=== PATIENT | male | born 1960 | race Two or more races ===

== ENCOUNTER 2019-07-18 00:26 | Inpatient (IN) | payer MEDICAID ==
[~2019-07-18] VITALS: Ht 170.2 cm; Wt 80.1 kg
[2019-07-18] VITALS (22 sets, daily range): BP systolic 135–159; BP diastolic 58–84
--- NOTE | 2019-07-18 01:09 | Emergency Room Report ---
History of Present Illness General Chief Complaint: Fever Source: Patient Present Illness HPI This is a 59-year-old male with no past medical history. He presents with chief complaint of fever and coughing. Onset for the last 2 to 3 days but worse today. Fever is subjective. Said warm to the touch. Also with chills. He said he is more short of breath today. Coughing is nonproductive nature. Also has sore throat. Nothing made it better. Inspiration made it worse. Denies any nausea or vomiting. Denies any diarrhea. No known sick contact but patient just started a new job. Allergies: Coded Allergies: No Known Allergies (Unverified , 07/18/19) COVID-19 Screening Contact w/high risk pt: Yes Recent Travel to affected area: No Experienced COVID-19 symptoms?: Yes COVID-19 symptoms experienced: Fever (T>100.4F or >38C), Shortness of Breath, Cough COVID-19 Testing performed LAW LIBRARIAN: No Patient History Past Medical History: see triage record, old chart reviewed Past Surgical History: none Pertinent Family History: none Social History: Denies: smoking Immunizations: other Reviewed Nursing Documentation: PMH: Agreed; PSxH: Agreed Review of Systems Constitutional: Reports: chills, fever Eye: Denies: eye pain, blurred vision ENT: Denies: ear pain, nose congestion, throat swelling Respiratory: Reports: cough, shortness of breath Cardiovascular: Denies: chest pain, palpitations Gastrointestinal: Denies: abdominal pain, diarrhea, nausea, vomiting Musculoskeletal: Denies: back pain, joint pain Skin: Denies: rash Neurological: Denies: headache, numbness Endocrine: Denies: increased thirst, increased urine Hematologic/Lymphatic: Denies: easy bruising All Other Systems: negative except mentioned in HPI Physical Exam Vital Signs Date Time Temp Pulse Resp B/P (MAP) Pulse Ox O2 Delivery O2 Flow Rate FiO2 07/18/19 00:34 98.4 93 16 149/81 (103) 93 Room Air Vitals unremarkable Sp02 EP Interpretation: reviewed, abnormal General Appearance: well appearing, no apparent distress, alert Head: normocephalic, atraumatic Eyes: bilateral eye PERRL, bilateral eye EOMI ENT: hearing grossly normal, normal pharynx Neck: full range of motion, supple, no meningismus Respiratory: chest non-tender, normal breath sounds, decreased breath sounds Cardiovascular #1: regular rate, rhythm, no murmur Gastrointestinal: normal bowel sounds, non tender, no mass, no organomegaly, no bruit, non-distended Musculoskeletal: back normal, normal range of motion, gait/station normal Psychiatric: mood/affect normal Medical Decision Making Diagnostic Impression: Primary Impression: Pneumonia Qualified Codes: J18.9 - Pneumonia, unspecified organism Additional Impressions: Suspected COVID-19 virus infection Obesity (BMI 30.0-34.9) ER Course Patient presents with dyspnea and fever. Based on the laboratory data and current pandemic, suspect that he has COVID pneumonia. His ferritin level, d- dimer, sed rate, C-reactive proteins are elevated. He has a lymphocytopenia. This points toward COVID infection. He received antibiotics, hydroxy chloroquine and Lovenox here. His oxygenation is around 93% on room air. Will admit for monitoring and further work-up. I contacted Dr. Wan for admission. This patient was evaluated in the context of the global COVID-19 pandemic, which necessitated consideration that the patient might be at risk for infection with the [id number] virus that causes COVID-19. Institutional protocols and algorithms that pertain to the evaluation of patients at risk for COVID-19 and the state of rapid change based on information released by multiple regulatory bodies including the CDC and federal and state organizations. These policies and algorithms were followed during the patient' s care in the ED. EKG Diagnostic Results Rate: normal Rhythm: NSR ST Segments: no acute changes Rhythm Strip Diag. Results EP Interpretation: yes Rate: 83 Rhythm: NSR, no PVC's, no ectopy Chest X-Ray Diagnostic Results Chest X-Ray Diagnostic Results : Chest X-Ray Ordered: Yes # of Views/Limited/Complete: 1 View Indication: Shortness of Breath EP Interpretation: Yes Interpretation: no effusion, no pneumothorax, other - b/l interstitial infiltrate Impression: Other - b/l interstitial infiltrates Electronically Signed by: Evert Degroot MD Last Vital Signs Date Time Temp Pulse Resp B/P (MAP) Pulse Ox O2 Delivery O2 Flow Rate FiO2 07/18/19 00:34 98.4 93 16 149/81 (103) 93 Room Air Status: improved Disposition: ADMITTED INPATIENT Condition: Serious Referrals: NOT CHOSEN IPA/,REFERRING (PCP) Evert Degroot MD July 18, 2019 01:09
[2019-07-18 01:31] LABS: BASOPHILS % (AUTO) 0.6 % (0.0-2.0); EOSINOPHILS % (AUTO) 0.8 % (0.0-3.0); HEMATOCRIT 42.7 % (42.0-52.0); HEMOGLOBIN 14.6 G/DL (14.2-18.0); LYMPHOCYTES % (AUTO) 14.8 % (20.0-45.0); MEAN CORPUSCULAR VOLUME 83 FL (80-99); MONOCYTES % (AUTO) 11.7 % (1.0-10.0); PLATELET COUNT 251 K/UL (150-450); RED BLOOD COUNT 5.12 M/UL (4.70-6.10); RED CELL DISTRIBUTION WIDTH 11.3 % (11.6-14.8); WHITE BLOOD COUNT 6.3 K/UL (4.8-10.8)
[2019-07-18 01:43] LABS: ANION GAP 8 mmol/L (5-15); BLOOD UREA NITROGEN 11 mg/dL (7-18); CALCIUM 8.8 MG/DL (8.5-10.1); CARBON DIOXIDE 29 MMOL/L (21-32); CHLORIDE 102 MMOL/L (98-107); CREATININE 1.1 MG/DL (0.55-1.30); POTASSIUM 3.9 MMOL/L (3.5-5.1); SODIUM 139 MMOL/L (136-145)
[2019-07-18] MEDS ORDERED: cefTRIAXone 1 GM in NS 55 ML IVPB ONE (01:45)
[2019-07-18] MEDS ORDERED: Azithromycin 500 MG in NS 275 ML IV ONE (01:45)
[2019-07-18] MEDS ORDERED: Hydroxychloroquine Fact Sheet MISC ONE ×2 (01:45→07:45)
[2019-07-18 02:00] LABS: ALANINE AMINOTRANSFERASE 56 U/L (12-78); ALBUMIN 2.8 G/DL (3.4-5.0); ALBUMIN/GLOBULIN RATIO 0.5 (1.0-2.7); ALKALINE PHOSPHATASE 65 U/L (46-116); ASPARTATE AMINO TRANSFERASE 69 U/L (15-37); BILIRUBIN,TOTAL 0.7 MG/DL (0.2-1.0); FERRITIN 1153 NG/ML (8-388)
--- NOTE | 2019-07-18 02:01 | Diagnostic Imaging Report ---
EXAM: XR Chest, 1 View CLINICAL HISTORY: SOB TECHNIQUE: Frontal view of the chest. COMPARISON: No relevant prior studies available. IMPRESSION: Cardiomegaly. Moderate left and mild right pleural effusions. Increased bilateral patchy airspace opacities, correlate with edema or infectious process.
[2019-07-18] MEDS ORDERED: Enoxaparin 100mg Inj SUBQ ONE (02:15)
[2019-07-18] MEDS: Enoxaparin 40mg Inj SUBQ SCH (08:10)
--- NOTE | 2019-07-18 11:15 | History and Physical Report ---
DATE OF ADMISSION: 07/18/2019 CHIEF COMPLAINT: Respiratory failure and pneumonia, likely COVID pneumonia. HISTORY OF PRESENT ILLNESS: The patient is a 59-year-old male with no past medical history presented with complaints of two to three days of progressive shortness of breath, fevers, and cough. On evaluation in the emergency room, the patient was markedly hypoxic and required placement on a non-rebreather. X-ray showed bilateral infiltrates. The patient was swab for COVID and is now admitted to intensive care unit for further evaluation and care. PAST MEDICAL HISTORY: None. PAST SURGICAL HISTORY: None. CURRENT MEDICATIONS: None. FAMILY HISTORY: None. SOCIAL HISTORY: The patient denies any history of tobacco or drugs. REVIEW OF SYSTEMS: Negative except for fevers, cough, and shortness of breath. PHYSICAL EXAMINATION: VITAL SIGNS: Temperature was 98 degrees, blood pressure 110/76, pulse of 88, respirations 20. GENERAL: The patient is a well-developed male, in no apparent distress. He is able to speak in full sentences. NECK: Supple. There is no adenopathy. HEART: Regular rate and rhythm. LUNGS: Clear. ABDOMEN: Soft, nontender, nondistended. EXTREMITIES: Without clubbing or cyanosis. LABORATORY DATA: Labs were reviewed. Chest x-ray showed bilateral infiltrates. ASSESSMENT: This is a 59-year-old male, admitted with complaints of shortness of breath, cough, and fevers, and significant hypoxemia, likely secondary to COVID pneumonia. PLAN: We will continue hydroxychloroquine that has already been started in the ER. The risks and benefits were discussed with the patient as well as the family and they are in agreement with trying treatment. They are aware that his current status is tenuous and guarded and that if his pneumonia worsens he can likely be on a ventilator, on life support. The patient will be gently hydrated. He will be started on DVT prophylaxis. The patient's status is currently serious and guarded. Clark Wan M.D. DR: TERA JOB#: [id number] CC:
--- NOTE | 2019-07-18 19:45 | Consultation ---
DATE OF CONSULTATION: 07/18/2019 This consult is for coverage of Dr. Kilgore. PRIMARY ATTENDING: Clark Wan MD REASON FOR CONSULT: Pneumonia, suspected COVID-19. HISTORY OF PRESENT ILLNESS: A 59-year-old male admitted today because of fever, coughing, shortness of breath. Fever was subjective. Cough was nonproductive. Shortness of breath for one day. PAST MEDICAL HISTORY: Insignificant. ALLERGIES: No known drug allergies. MEDICATIONS: Getting hydroxychloroquine, ceftriaxone, Lovenox, Tylenol, Zofran. SOCIAL HISTORY: . 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 Never a smoker. REVIEW OF SYSTEMS: Subjective fever, dry cough. No nausea. No vomiting. No diarrhea. No dysuria. PHYSICAL EXAMINATION: VITAL SIGNS: Temperature 99.7, pulse 79, blood pressure 144/69. The patient is in ICU because of hypoxemia. HEAD AND NECK: [place] conjunctivae. HEART: Normal rate. LUNGS: The patient is on oxygen by rebreathing mask, breathing fast. ABDOMEN: Soft. EXTREMITIES: No edema. NEUROLOGIC: Awake, alert, oriented x3. LABORATORY AND DIAGNOSTIC DATA: Sodium 139, potassium 3.9, chloride 102, bicarbonate 27, BUN 11, creatinine 1.1, glucose 117. Ferritin is high 1153. AST is elevated at 69. Albumin is 2.8. WBC 6.3, hemoglobin 14.6, hematocrit 42.7, and platelets 251, lymphocyte is 14.8, monocytes 11.7. Chest x-ray showed bilateral effusion that is moderate on the left side, mild on the right side, bilateral patchy airway opacity. IMPRESSION: Atypical pneumonia, likely COVID-19, has hypoxemia, pleural effusion, obesity. RECOMMENDATIONS: We will continue with ceftriaxone and chloroquine. We will follow up the cultures and COVID-19 test. At the end of my exam, I thank Dr. Wan for involving me in the care of this patient. Ricci Greco M.D. DR: MONI JOB#: [id number] CC: SURENDRA
[2019-07-19] VITALS (23 sets, daily range): BP systolic 136–158; BP diastolic 71–86
[2019-07-19] MEDS: cefTRIAXone 1 GM in D5W 55 ML IVPB SCH (01:37)
[2019-07-19 06:24] LABS: ALANINE AMINOTRANSFERASE 60 U/L (12-78); ALBUMIN 2.5 G/DL (3.4-5.0); ALBUMIN/GLOBULIN RATIO 0.5 (1.0-2.7); ALKALINE PHOSPHATASE 61 U/L (46-116); ANION GAP 9 mmol/L (5-15); ASPARTATE AMINO TRANSFERASE 79 U/L (15-37); BILIRUBIN,TOTAL 0.5 MG/DL (0.2-1.0); BLOOD UREA NITROGEN 7 mg/dL (7-18); CALCIUM 8.5 MG/DL (8.5-10.1); CARBON DIOXIDE 27 MMOL/L (21-32); CHLORIDE 104 MMOL/L (98-107); CREATININE 0.8 MG/DL (0.55-1.30); POTASSIUM 4.2 MMOL/L (3.5-5.1); SODIUM 140 MMOL/L (136-145)
[2019-07-19 07:34] LABS: BASOPHILS % (AUTO) 0.4 % (0.0-2.0); EOSINOPHILS % (AUTO) 1.3 % (0.0-3.0); HEMATOCRIT 39.6 % (42.0-52.0); HEMOGLOBIN 13.6 G/DL (14.2-18.0); MEAN CORPUSCULAR VOLUME 83 FL (80-99); MONOCYTES % (AUTO) 11.7 % (1.0-10.0); NEUTROPHILS % (AUTO) 68.7 % (45.0-75.0); PLATELET COUNT 295 K/UL (150-450); RED BLOOD COUNT 4.75 M/UL (4.70-6.10); RED CELL DISTRIBUTION WIDTH 10.9 % (11.6-14.8)
[2019-07-19] MEDS: Enoxaparin 40mg Inj SUBQ SCH (08:06)
--- NOTE | 2019-07-19 08:17 | General Progress Note ---
Assessment/Plan Problem List: (1) Pneumonia ICD Codes: J18.9 - Pneumonia, unspecified organism SNOMED: 036394718 Qualifiers: Qualified Codes: J18.9 - Pneumonia, unspecified organism (2) Suspected COVID-19 virus infection ICD Codes: Z20.828 - Contact with and (suspected) exposure to other viral communicable diseases SNOMED: 745111066 Status: stable Assessment/Plan: abx plaquenil o2 await covid 19 pcr Subjective ROS Limited/Unobtainable: No Constitutional: Reports: no symptoms HEENT: Reports: no symptoms Cardiovascular: Reports: no symptoms Respiratory: Reports: shortness of breath Gastrointestinal/Abdominal: Reports: no symptoms Genitourinary: Reports: no symptoms Neurologic/Psychiatric: Reports: no symptoms Endocrine: Reports: no symptoms Hematologic/Lymphatic: Reports: no symptoms Allergies: Coded Allergies: No Known Allergies (Unverified , 07/18/19) All Systems: reviewed and negative except above Subjective no change. on nrb. covid pending. on abx Objective Last 24 Hour Vital Signs Date Time Temp Pulse Resp B/P (MAP) Pulse Ox O2 Delivery O2 Flow Rate FiO2 07/19/19 08:05 82 150/74 07/19/19 07:00 81 33 151/81 (104) 98 81 07/19/19 06:00 82 25 146/75 (98) 91 82 07/19/19 05:00 70 18 155/79 (104) 96 70 07/19/19 04:00 97.9 69 25 136/72 (93) 94 69 07/19/19 04:00 86 07/19/19 04:00 Non-Rebreather 15.0 07/19/19 03:00 64 25 139/74 (95) 97 64 07/19/19 02:00 85 23 153/71 (98) 91 85 07/19/19 01:00 80 31 150/74 (99) 94 80 07/19/19 00:00 Non-Rebreather 15.0 07/19/19 00:00 98.6 65 20 153/78 (103) 98 65 07/19/19 00:00 85 07/18/19 23:00 83 25 154/76 (102) 92 83 07/18/19 22:00 85 30 144/74 (97) 94 5/24/20 21:00 70 30 154/74 (100) 94 07/18/19 20:58 88 160/83 07/18/19 20:00 84 07/18/19 20:00 98.5 84 30 152/78 (102) 91 07/18/19 20:00 Non-Rebreather 15.0 07/18/19 19:00 83 34 149/76 (100) 91 07/18/19 18:00 83 34 154/78 (103) 87 07/18/19 17:00 71 28 145/69 (94) 96 07/18/19 16:00 Non-Rebreather 07/18/19 16:00 98.2 79 35 159/84 (109) 88 07/18/19 15:26 80 07/18/19 15:00 72 26 149/78 (101) 95 07/18/19 14:00 80 29 148/76 (100) 91 07/18/19 13:00 75 27 139/72 (94) 98 07/18/19 12:00 98.5 90 23 148/59 (88) 84 07/18/19 12:00 Non-Rebreather 07/18/19 11:28 77 07/18/19 11:00 83 26 143/72 (95) 98 07/18/19 10:00 78 29 138/74 (95) 96 07/18/19 09:00 79 27 144/69 (94) 96 Intake and Output 07/18/19 07/19/19 19:00 07:00 Intake Total 1075 ml 1015 ml Output Total 700 ml 1150 ml Balance 375 ml -135 ml Intake Oral 1075 ml 960 ml IV Total 55 ml Output Urine Total 700 ml 1150 ml Laboratory Tests 07/19/19 03:30: Sodium Level [Pending], Potassium Level [Pending], Chloride Level [Pending], Carbon Dioxide Level [Pending], Anion Gap 9, Blood Urea Nitrogen [Pending], Creatinine [Pending], Estimat Glomerular Filtration Rate [Pending], Glucose Level [Pending], Calcium Level [Pending], Total Bilirubin 0.5, Aspartate Amino Transf (AST/SGOT) 79H, Alanine Aminotransferase (ALT/SGPT) 60, Alkaline Phosphatase 61, C-Reactive Protein, Quantitative 17.3H, Total Protein 7.5, Albumin 2.5L, Globulin 5.0, Albumin/Globulin Ratio 0.5L 07/19/19 05:30: White Blood Count 7.0, Red Blood Count 4.75, Hemoglobin 13.6L, Hematocrit 39.6L , Mean Corpuscular Volume 83, Mean Corpuscular Hemoglobin 28.7, Mean Corpuscular Hemoglobin Concent 34.4, Red Cell Distribution Width 10.9L, Platelet Count 295, Mean Platelet Volume 6.6, Neutrophils (%) (Auto) 68.7, Lymphocytes (%) (Auto) 18.0L, Monocytes (%) (Auto) 11.7H, Eosinophils (%) (Auto ) 1.3, Basophils (%) (Auto) 0.4 Height (Feet): 5 Height (Inches): 7.00 Weight (Pounds): 208 General Appearance: WD/WN Cardiovascular: normal rate Respiratory/Chest: lungs clear Abdomen: normal bowel sounds, non tender, soft, no organomegaly Edema: no edema noted Arm (L), no edema noted Arm (R), no edema noted Leg (L), no edema noted Leg (R), no edema noted Pedal (L), no edema noted Pedal (R), no edema noted Generalized Clark Wan MD July 19, 2019 08:17
--- NOTE | 2019-07-19 10:04 | Infectious Diseases Prog Note ---
Assessment/Plan Assessment/Plan antibiotics : ceftriaxone, hydroxychloroquine A 1. pneumonia r/o COVID 19 pneumonia on face mask 100 percent, saturation 96 percent 2. pleural effusion 3. respiratory failure P 1. continue ceftriaxone 2. continue hydroxychloroquine 3. will follow up cultures Subjective ROS Limited/Unobtainable: Yes Allergies: Coded Allergies: No Known Allergies (Unverified , 07/18/19) Objective Vital Signs Last 24 Hour Vital Signs Date Time Temp Pulse Resp B/P (MAP) Pulse Ox O2 Delivery O2 Flow Rate FiO2 07/19/19 09:00 68 26 146/79 (101) 98 68 07/19/19 08:05 82 150/74 07/19/19 08:00 98.2 82 32 150/74 (99) 91 82 07/19/19 08:00 Non-Rebreather 15.0 07/19/19 07:26 87 07/19/19 07:00 81 33 151/81 (104) 98 81 07/19/19 06:00 82 25 146/75 (98) 91 82 07/19/19 05:00 70 18 155/79 (104) 96 70 07/19/19 04:00 97.9 69 25 136/72 (93) 94 69 07/19/19 04:00 86 07/19/19 04:00 Non-Rebreather 15.0 07/19/19 03:00 64 25 139/74 (95) 97 64 07/19/19 02:00 85 23 153/71 (98) 91 85 07/19/19 01:00 80 31 150/74 (99) 94 80 07/19/19 00:00 Non-Rebreather 15.0 07/19/19 00:00 98.6 65 20 153/78 (103) 98 65 07/19/19 00:00 85 07/18/19 23:00 83 25 154/76 (102) 92 83 07/18/19 22:00 85 30 144/74 (97) 94 07/18/19 21:00 70 30 154/74 (100) 94 07/18/19 20:58 88 160/83 07/18/19 20:00 84 07/18/19 20:00 98.5 84 30 152/78 (102) 91 07/18/19 20:00 Non-Rebreather 15.0 07/18/19 19:00 83 34 149/76 (100) 91 07/18/19 18:00 83 34 154/78 (103) 87 07/18/19 17:00 71 28 145/69 (94) 96 07/18/19 16:00 Non-Rebreather 07/18/19 16:00 98.2 79 35 159/84 (109) 88 07/18/19 15:26 80 07/18/19 15:00 72 26 149/78 (101) 95 07/18/19 14:00 80 29 148/76 (100) 91 07/18/19 13:00 75 27 139/72 (94) 98 07/18/19 12:00 98.5 90 23 148/59 (88) 84 07/18/19 12:00 Non-Rebreather 07/18/19 11:28 77 07/18/19 11:00 83 26 143/72 (95) 98 07/18/19 10:00 78 29 138/74 (95) 96 Height (Feet): 5 Height (Inches): 7.00 Weight (Pounds): 208 Laboratory Tests Test 07/19/19 03:30 07/19/19 05:30 Sodium Level Pending Potassium Level Pending Chloride Level Pending Carbon Dioxide Level Pending Anion Gap 9 mmol/L (5-15) Blood Urea Nitrogen Pending Creatinine Pending Estimat Glomerular Filtration Rate Pending Glucose Level Pending Calcium Level Pending Total Bilirubin 0.5 MG/DL (0.2-1.0) Aspartate Amino Transf (AST/SGOT) 79 U/L (15-37) H Alanine Aminotransferase (ALT/SGPT) 60 U/L (12-78) Alkaline Phosphatase 61 U/L (46-116) C-Reactive Protein, Quantitative 17.3 mg/dL (0.00-0.90) H Total Protein 7.5 G/DL (6.4-8.2) Albumin 2.5 G/DL (3.4-5.0) L Globulin 5.0 g/dL Albumin/Globulin Ratio 0.5 (1.0-2.7) L White Blood Count 7.0 K/UL (4.8-10.8) Red Blood Count 4.75 M/UL (4.70-6.10) Hemoglobin 13.6 G/DL (14.2-18.0) L Hematocrit 39.6 % (42.0-52.0) L Mean Corpuscular Volume 83 FL (80-99) Mean Corpuscular Hemoglobin 28.7 PG (27.0-31.0) Mean Corpuscular Hemoglobin Concent 34.4 G/DL (32.0-36.0) Red Cell Distribution Width 10.9 % (11.6-14.8) L Platelet Count 295 K/UL (150-450) Mean Platelet Volume 6.6 FL (6.5-10.1) Neutrophils (%) (Auto) 68.7 % (45.0-75.0) Lymphocytes (%) (Auto) 18.0 % (20.0-45.0) L Monocytes (%) (Auto) 11.7 % (1.0-10.0) H Eosinophils (%) (Auto) 1.3 % (0.0-3.0) Basophils (%) (Auto) 0.4 % (0.0-2.0) Current Medications Medications (Trade) Dose Ordered Sig/Devan Route PRN Reason Start Time Stop Time Status Last Admin Dose Admin Acetaminophen (Tylenol) 500 mg Q4H PRN ORAL Mild Pain (Pain Scale 1-3) 07/18/19 07:45 08/17/19 07:44 Ceftriaxone Sodium 1 gm/ Dextrose 55 ml @ 110 mls/hr Q24H IVPB 07/19/19 02:00 07/26/19 01:59 07/19/19 01:37 Enoxaparin Sodium (Lovenox) 40 mg DAILY SUBQ 07/18/19 09:00 10/16/19 08:59 07/19/19 08:06 Hydroxychloroquine Sulfate (Plaquenil) 200 mg Q12HR ORAL 07/19/19 09:00 07/22/19 21:01 07/19/19 08:06 Metoprolol Tartrate (Lopressor) 25 mg Q12HR ORAL 07/18/19 21:00 10/16/19 20:59 07/19/19 08:05 Ondansetron HCl (Zofran) 4 mg Q6H PRN IVP Nausea & Vomiting 07/18/19 07:45 08/17/19 07:44 Cristine Kilgore MD July 19, 2019 10:04
[2019-07-19] MEDS ORDERED: NS 275ml ONE (16:23)
[2019-07-19] MEDS ORDERED: Tubing IV Secondary IV ONE (16:23)
[2019-07-19] MEDS: Acetaminophen 500mg (ES) tab ORAL PRN (22:09)
[2019-07-20] VITALS (14 sets, daily range): BP systolic 140–156; BP diastolic 69–88
[2019-07-20] MEDS: cefTRIAXone 1 GM in D5W 55 ML IVPB SCH (02:45)
[2019-07-20] MEDS: Acetaminophen 500mg (ES) tab ORAL PRN (06:18)
[2019-07-20] MEDS: Enoxaparin 40mg Inj SUBQ SCH (08:37)
--- NOTE | 2019-07-20 08:50 | General Progress Note ---
Assessment/Plan Problem List: (1) Pneumonia ICD Codes: J18.9 - Pneumonia, unspecified organism SNOMED: [id number] Qualifiers: Qualified Codes: J18.9 - Pneumonia, unspecified organism (2) Suspected COVID-19 virus infection ICD Codes: Z20.828 - Contact with and (suspected) exposure to other viral communicable diseases SNOMED: [id number] Status: stable Assessment/Plan: abx plaquenil o2- wean as able await covid 19 pcr Subjective ROS Limited/Unobtainable: No Constitutional: Reports: malaise, weakness HEENT: Reports: no symptoms Cardiovascular: Reports: no symptoms Respiratory: Reports: cough, shortness of breath Gastrointestinal/Abdominal: Reports: no symptoms Genitourinary: Reports: no symptoms Neurologic/Psychiatric: Reports: no symptoms Endocrine: Reports: no symptoms Hematologic/Lymphatic: Reports: no symptoms Allergies: Coded Allergies: No Known Allergies (Unverified , 07/18/19) All Systems: reviewed and negative except above Subjective no change. on nrb. covid pending. on abx. remains on nrb Objective Last 24 Hour Vital Signs Date Time Temp Pulse Resp B/P (MAP) Pulse Ox O2 Delivery O2 Flow Rate FiO2 07/20/19 08:35 79 156/80 07/20/19 07:00 79 27 151/75 (100) 97 07/20/19 06:00 84 31 156/78 (104) 94 07/20/19 05:00 82 30 153/77 (102) 92 07/20/19 04:00 Non-Rebreather 15.0 07/20/19 04:00 78 07/20/19 04:00 74 28 146/74 (98) 95 07/20/19 03:00 99.0 68 25 143/74 (97) 93 07/20/19 02:00 65 21 140/75 (96) 98 07/20/19 01:00 73 28 151/74 (99) 96 07/20/19 00:00 Non-Rebreather 15.0 07/20/19 00:00 69 07/20/19 00:00 99.7 71 28 140/76 (97) 96 07/19/19 23:00 70 29 141/79 (99) 85 07/19/19 22:00 76 29 95 07/19/19 21:33 97 Non-Rebreather 15.0 100 07/19/19 21:12 85 155/82 07/19/19 21:00 90 26 155/82 (106) 95 07/19/19 20:00 81 07/19/19 20:00 Non-Rebreather 15.0 07/19/19 20:00 99.2 84 35 158/76 (103) 94 07/19/19 19:00 81 32 148/86 (106) 97 07/19/19 18:00 83 21 145/75 (98) 96 07/19/19 17:00 81 31 156/75 (102) 92 07/19/19 16:00 Non-Rebreather 15.0 07/19/19 16:00 98.6 74 30 147/78 (101) 94 07/19/19 15:19 82 07/19/19 15:00 83 34 148/80 (102) 89 07/19/19 14:00 67 10 148/72 (97) 97 07/19/19 13:00 86 29 145/72 (96) 92 07/19/19 12:00 97.8 80 34 147/74 (98) 81 07/19/19 12:00 Non-Rebreather 15.0 07/19/19 11:18 74 07/19/19 11:00 63 24 140/71 (94) 97 07/19/19 10:00 71 28 144/78 (100) 97 07/19/19 09:00 68 26 146/79 (101) 98 68 Intake and Output 07/19/19 07/20/19 18:59 06:59 Intake Total 1650 ml 1055 ml Output Total 950 ml 1200 ml Balance 700 ml -145 ml Intake Oral 1650 ml 1000 ml IV Total 55 ml Output Urine Total 950 ml 1200 ml # Bowel Movements 1 Height (Feet): 5 Height (Inches): 7.00 Weight (Pounds): 208 General Appearance: WD/WN Neck: supple Cardiovascular: regular rhythm Respiratory/Chest: lungs clear Abdomen: soft Edema: no edema noted Arm (L), no edema noted Arm (R), no edema noted Leg (L), no edema noted Leg (R), no edema noted Pedal (L), no edema noted Pedal (R), no edema noted Generalized Clark Wan MD July 20, 2019 08:49
[2019-07-20] MEDS ORDERED: Acetaminophen 500mg (ES) tab ORAL PRN (10:45)
--- NOTE | 2019-07-20 10:56 | Infectious Diseases Prog Note ---
Assessment/Plan Assessment/Plan antibiotics : ceftriaxone, hydroxychloroquine A 1. pneumonia r/o COVID 19 pneumonia on face mask 100 percent, 15 liters, O2 saturation 97 percent 2. pleural effusion 3. respiratory failure P 1. continue ceftriaxone 2. continue hydroxychloroquine 3. will follow up cultures Subjective ROS Limited/Unobtainable: Yes Allergies: Coded Allergies: No Known Allergies (Unverified , 07/18/19) Objective Vital Signs Last 24 Hour Vital Signs Date Time Temp Pulse Resp B/P (MAP) Pulse Ox O2 Delivery O2 Flow Rate FiO2 07/20/19 10:00 76 26 144/79 (100) 97 07/20/19 09:00 83 26 144/69 (94) 94 07/20/19 08:35 79 156/80 07/20/19 08:00 83 07/20/19 08:00 98.9 78 25 156/80 (105) 97 07/20/19 08:00 Non-Rebreather 15.0 07/20/19 07:00 79 27 151/75 (100) 97 07/20/19 06:00 84 31 156/78 (104) 94 07/20/19 05:00 82 30 153/77 (102) 92 07/20/19 04:00 Non-Rebreather 15.0 07/20/19 04:00 78 07/20/19 04:00 74 28 146/74 (98) 95 07/20/19 03:00 99.0 68 25 143/74 (97) 93 07/20/19 02:00 65 21 140/75 (96) 98 07/20/19 01:00 73 28 151/74 (99) 96 07/20/19 00:00 Non-Rebreather 15.0 07/20/19 00:00 69 07/20/19 00:00 99.7 71 28 140/76 (97) 96 07/19/19 23:00 70 29 141/79 (99) 85 07/19/19 22:00 76 29 95 07/19/19 21:33 97 Non-Rebreather 15.0 100 07/19/19 21:12 85 155/82 07/19/19 21:00 90 26 155/82 (106) 95 07/19/19 20:00 81 07/19/19 20:00 Non-Rebreather 15.0 07/19/19 20:00 99.2 84 35 158/76 (103) 94 07/19/19 19:00 81 32 148/86 (106) 97 07/19/19 18:00 83 21 145/75 (98) 96 07/19/19 17:00 81 31 156/75 (102) 92 07/19/19 16:00 Non-Rebreather 15.0 07/19/19 16:00 98.6 74 30 147/78 (101) 94 07/19/19 15:19 82 07/19/19 15:00 83 34 148/80 (102) 89 07/19/19 14:00 67 10 148/72 (97) 97 07/19/19 13:00 86 29 145/72 (96) 92 07/19/19 12:00 97.8 80 34 147/74 (98) 81 07/19/19 12:00 Non-Rebreather 15.0 07/19/19 11:18 74 07/19/19 11:00 63 24 140/71 (94) 97 Height (Feet): 5 Height (Inches): 7.00 Weight (Pounds): 208 Microbiology Date/Time Source Procedure Growth Status 07/18/19 12:07 Nasal Nares Left MRSA Culture - Final NO METHICILLIN RESISTANT STAPH AUREUS... Complete Current Medications Medications (Trade) Dose Ordered Sig/Devan Route PRN Reason Start Time Stop Time Status Last Admin Dose Admin Acetaminophen (Tylenol) 500 mg Q4H PRN ORAL Mild Pain (Pain Scale 1-3) 07/20/19 10:45 08/17/19 10:44 Ceftriaxone Sodium 1 gm/ Dextrose 55 ml @ 110 mls/hr Q24H IVPB 07/21/19 02:00 07/26/19 01:59 Enoxaparin Sodium (Lovenox) 40 mg DAILY SUBQ 07/21/19 09:00 10/16/19 08:59 Hydroxychloroquine Sulfate (Plaquenil) 200 mg Q12HR ORAL 07/20/19 21:00 07/22/19 21:01 UNV Metoprolol Tartrate (Lopressor) 25 mg Q12HR ORAL 07/20/19 21:00 10/16/19 20:59 Ondansetron HCl (Zofran) 4 mg Q6H PRN IVP Nausea & Vomiting 07/20/19 10:45 08/17/19 10:44 Cristine Kilgore MD July 20, 2019 10:56
[2019-07-21] VITALS: BP 138/72
[2019-07-21] MEDS: cefTRIAXone 1 GM in D5W 55 ML IVPB SCH (01:05)
[2019-07-21 04:00] VITALS: BP 142/77
[2019-07-21 06:10] LABS: ANION GAP 8 mmol/L (5-15); BLOOD UREA NITROGEN 8 mg/dL (7-18); CALCIUM 8.8 MG/DL (8.5-10.1); CARBON DIOXIDE 28 MMOL/L (21-32); CHLORIDE 101 MMOL/L (98-107); POTASSIUM 3.7 MMOL/L (3.5-5.1); SODIUM 137 MMOL/L (136-145)
[2019-07-21 07:30] VITALS: BP 146/79
[2019-07-21] MEDS: Enoxaparin 40mg Inj SUBQ SCH (08:35)
--- NOTE | 2019-07-21 08:50 | General Progress Note ---
Assessment/Plan Problem List: (1) Pneumonia ICD Codes: J18.9 - Pneumonia, unspecified organism SNOMED: 344586021 Qualifiers: Qualified Codes: J18.9 - Pneumonia, unspecified organism (2) Suspected COVID-19 virus infection ICD Codes: Z20.828 - Contact with and (suspected) exposure to other viral communicable diseases SNOMED: 540172825 Status: stable Assessment/Plan: abx plaquenil o2- wean as able await covid 19 pcr replace k Subjective Allergies: Coded Allergies: No Known Allergies (Unverified , 07/18/19) All Systems: reviewed and negative except above Subjective no change. on nrb. covid pending. on abx. remains on nrb Objective Last 24 Hour Vital Signs Date Time Temp Pulse Resp B/P (MAP) Pulse Ox O2 Delivery O2 Flow Rate FiO2 07/21/19 08:34 69 146/79 07/21/19 07:30 97.7 69 20 146/79 (101) 97 07/21/19 04:00 Non-Rebreather 15.0 07/21/19 04:00 97.9 79 20 142/77 (98) 97 07/21/19 03:27 69 07/21/19 00:00 98.2 86 20 138/72 (94) 97 07/21/19 00:00 74 07/21/19 00:00 Non-Rebreather 15.0 07/20/19 20:11 81 144/75 07/20/19 20:00 Non-Rebreather 15.0 07/20/19 20:00 92 07/20/19 19:51 97.7 81 20 144/75 (98) 94 07/20/19 19:25 92 Non-Rebreather 15.0 100 07/20/19 16:00 Non-Rebreather 15.0 07/20/19 16:00 97.3 76 22 144/77 (99) 96 07/20/19 15:23 72 07/20/19 12:34 66 07/20/19 12:00 Non-Rebreather 15.0 07/20/19 12:00 Non-Rebreather 15.0 07/20/19 12:00 97.9 76 24 145/88 (107) 98 07/20/19 10:00 76 26 144/79 (100) 97 07/20/19 09:00 83 26 144/69 (94) 94 Intake and Output 07/20/19 07/21/19 19:00 07:00 Intake Total 840 ml 110 ml Output Total 1800 ml 1000 ml Balance -960 ml -890 ml Intake Oral 840 ml IV Total 110 ml Output Urine Total 1800 ml 1000 ml # Voids 2 1 # Bowel Movements 2 3 Laboratory Tests 07/21/19 04:35: Sodium Level 137, Potassium Level 3.7, Chloride Level 101, Carbon Dioxide Level 28, Anion Gap 8, Blood Urea Nitrogen 8, Creatinine 1.0, Estimat Glomerular Filtration Rate > 60, Glucose Level 123H, Calcium Level 8.8, Magnesium Level 2.4 Height (Feet): 5 Height (Inches): 7.00 Weight (Pounds): 207 Objective General Appearance: WD/WN Neck: supple Cardiovascular: regular rhythm Respiratory/Chest: lungs clear Abdomen: soft Edema: no edema noted Arm (L), no edema noted Arm (R), no edema noted Leg (L), no edema noted Leg (R), no edema noted Pedal (L), no edema noted Pedal (R), no edema noted Generalized Clark Wan MD July 21, 2019 08:49
[2019-07-21 09:54] LABS: BASOPHILS % (AUTO) 0.6 % (0.0-2.0); EOSINOPHILS % (AUTO) 1.8 % (0.0-3.0); HEMATOCRIT 41.6 % (42.0-52.0); HEMOGLOBIN 13.9 G/DL (14.2-18.0); LYMPHOCYTES % (AUTO) 17.5 % (20.0-45.0); MEAN CORPUSCULAR VOLUME 84 FL (80-99); MONOCYTES % (AUTO) 8.8 % (1.0-10.0); NEUTROPHILS % (AUTO) 71.3 % (45.0-75.0); PLATELET COUNT 355 K/UL (150-450); RED BLOOD COUNT 4.98 M/UL (4.70-6.10); RED CELL DISTRIBUTION WIDTH 11.1 % (11.6-14.8); WHITE BLOOD COUNT 7.2 K/UL (4.8-10.8)
--- NOTE | 2019-07-21 10:40 | Infectious Diseases Prog Note ---
Assessment/Plan Assessment/Plan antibiotics : ceftriaxone, hydroxychloroquine A 1. pneumonia r/o COVID 19 pneumonia on face mask 100 percent, 15 liters, O2 saturation 97 percent 2. pleural effusion 3. respiratory failure P 1. continue ceftriaxone 2. continue hydroxychloroquine 3. will follow up cultures Subjective Constitutional: Denies: fever, chills Respiratory: Reports: shortness of breath; Denies: dry cough Gastrointestinal/Abdominal: Denies: nausea, vomiting, diarrhea Musculoskeletal: Denies: pain Allergies: Coded Allergies: No Known Allergies (Unverified , 07/18/19) Objective Vital Signs Last 24 Hour Vital Signs Date Time Temp Pulse Resp B/P (MAP) Pulse Ox O2 Delivery O2 Flow Rate FiO2 07/21/19 08:34 69 146/79 07/21/19 07:30 97.7 69 20 146/79 (101) 97 07/21/19 04:00 Non-Rebreather 15.0 07/21/19 04:00 97.9 79 20 142/77 (98) 97 07/21/19 03:27 69 07/21/19 00:00 98.2 86 20 138/72 (94) 97 07/21/19 00:00 74 07/21/19 00:00 Non-Rebreather 15.0 07/20/19 20:11 81 144/75 07/20/19 20:00 Non-Rebreather 15.0 07/20/19 20:00 92 07/20/19 19:51 97.7 81 20 144/75 (98) 94 07/20/19 19:25 92 Non-Rebreather 15.0 100 07/20/19 16:00 Non-Rebreather 15.0 07/20/19 16:00 97.3 76 22 144/77 (99) 96 07/20/19 15:23 72 07/20/19 12:34 66 07/20/19 12:00 Non-Rebreather 15.0 07/20/19 12:00 Non-Rebreather 15.0 07/20/19 12:00 97.9 76 24 145/88 (107) 98 Height (Feet): 5 Height (Inches): 7.00 Weight (Pounds): 207 Microbiology Date/Time Source Procedure Growth Status 07/18/19 12:07 Nasal Nares Left MRSA Culture - Final NO METHICILLIN RESISTANT STAPH AUREUS... 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 Complete Laboratory Tests Test 07/21/19 04:35 07/21/19 09:35 Sodium Level 137 MMOL/L (136-145) Potassium Level 3.7 MMOL/L (3.5-5.1) Chloride Level 101 MMOL/L (98-107) Carbon Dioxide Level 28 MMOL/L (21-32) Anion Gap 8 mmol/L (5-15) Blood Urea Nitrogen 8 mg/dL (7-18) Creatinine 1.0 MG/DL (0.55-1.30) Estimat Glomerular Filtration Rate > 60 mL/min (>60) Glucose Level 123 MG/DL (74-106) H Calcium Level 8.8 MG/DL (8.5-10.1) Magnesium Level 2.4 MG/DL (1.8-2.4) White Blood Count 7.2 K/UL (4.8-10.8) Red Blood Count 4.98 M/UL (4.70-6.10) Hemoglobin 13.9 G/DL (14.2-18.0) L Hematocrit 41.6 % (42.0-52.0) L Mean Corpuscular Volume 84 FL (80-99) Mean Corpuscular Hemoglobin 28.0 PG (27.0-31.0) Mean Corpuscular Hemoglobin Concent 33.5 G/DL (32.0-36.0) Red Cell Distribution Width 11.1 % (11.6-14.8) L Platelet Count 355 K/UL (150-450) Mean Platelet Volume 6.2 FL (6.5-10.1) L Neutrophils (%) (Auto) 71.3 % (45.0-75.0) Lymphocytes (%) (Auto) 17.5 % (20.0-45.0) L Monocytes (%) (Auto) 8.8 % (1.0-10.0) Eosinophils (%) (Auto) 1.8 % (0.0-3.0) Basophils (%) (Auto) 0.6 % (0.0-2.0) Current Medications Medications (Trade) Dose Ordered Sig/Devan Route PRN Reason Start Time Stop Time Status Last Admin Dose Admin Acetaminophen (Tylenol) 500 mg Q4H PRN ORAL Mild Pain (Pain Scale 1-3) 07/20/19 10:45 08/17/19 10:44 Ceftriaxone Sodium 1 gm/ Dextrose 55 ml @ 110 mls/hr Q24H IVPB 07/21/19 02:00 07/26/19 01:59 07/21/19 01:05 Enoxaparin Sodium (Lovenox) 40 mg DAILY SUBQ 07/21/19 09:00 10/16/19 08:59 07/21/19 08:35 Hydroxychloroquine Sulfate (Plaquenil) 200 mg Q12HR ORAL 07/20/19 21:00 07/22/19 21:01 07/21/19 08:34 Metoprolol Tartrate (Lopressor) 25 mg Q12HR ORAL 07/20/19 21:00 10/16/19 20:59 07/21/19 08:34 Ondansetron HCl (Zofran) 4 mg Q6H PRN IVP Nausea & Vomiting 07/20/19 10:45 08/17/19 10:44 Cristine Kilgore MD July 21, 2019 10:39
[2019-07-21 12:00] VITALS: BP 142/83
[2019-07-21 15:35] VITALS: BP 148/77
[2019-07-21 20:00] VITALS: BP 142/80
[2019-07-22] VITALS: BP 145/82
[2019-07-22] MEDS: cefTRIAXone 1 GM in D5W 55 ML IVPB SCH (02:00)
[2019-07-22 04:00] VITALS: BP 139/78
[2019-07-22 05:47] LABS: ANION GAP 6 mmol/L (5-15); BLOOD UREA NITROGEN 9 mg/dL (7-18); CALCIUM 8.6 MG/DL (8.5-10.1); CARBON DIOXIDE 30 MMOL/L (21-32); CHLORIDE 103 MMOL/L (98-107); POTASSIUM 4.1 MMOL/L (3.5-5.1); SODIUM 139 MMOL/L (136-145)
[2019-07-22 08:00] VITALS: BP 136/72
--- NOTE | 2019-07-22 08:01 | General Progress Note ---
Assessment/Plan Problem List: (1) Pneumonia ICD Codes: J18.9 - Pneumonia, unspecified organism SNOMED: 250299205 Qualifiers: Qualified Codes: J18.9 - Pneumonia, unspecified organism (2) Suspected COVID-19 virus infection ICD Codes: Z20.828 - Contact with and (suspected) exposure to other viral communicable diseases SNOMED: 861146457 Status: stable Assessment/Plan: abx plaquenil o2- wean as able await covid 19 pcr k and mg ok- will monitor Subjective ROS Limited/Unobtainable: No Constitutional: Reports: malaise, weakness HEENT: Reports: no symptoms Cardiovascular: Reports: no symptoms Respiratory: Reports: cough, shortness of breath Gastrointestinal/Abdominal: Reports: no symptoms Genitourinary: Reports: no symptoms Neurologic/Psychiatric: Reports: no symptoms Endocrine: Reports: no symptoms Hematologic/Lymphatic: Reports: no symptoms Allergies: Coded Allergies: No Known Allergies (Unverified , 07/18/19) All Systems: reviewed and negative except above Subjective no change. on nrb. covid 19 pcr positive. on plaquenil. on abx. remains on nrb Objective Last 24 Hour Vital Signs Date Time Temp Pulse Resp B/P (MAP) Pulse Ox O2 Delivery O2 Flow Rate FiO2 07/22/19 04:00 65 07/22/19 04:00 Non-Rebreather 15.0 07/22/19 04:00 97.5 81 20 139/78 (98) 99 07/22/19 00:00 Non-Rebreather 15.0 07/22/19 00:00 56 07/22/19 00:00 97.7 73 20 145/82 (103) 98 07/21/19 20:07 70 142/80 07/21/19 20:00 Non-Rebreather 15.0 07/21/19 20:00 67 07/21/19 20:00 97.5 70 20 142/80 (100) 97 07/21/19 16:00 68 07/21/19 16:00 Non-Rebreather 15.0 07/21/19 15:35 97.3 71 20 148/77 (100) 96 07/21/19 12:00 Non-Rebreather 15.0 07/21/19 12:00 97.9 74 20 142/83 (102) 95 07/21/19 11:48 60 07/21/19 08:34 69 146/79 Intake and Output 07/21/19 07/22/19 19:00 07:00 Intake Total 1500 ml Output Total 1500 ml Balance 0 ml Intake Oral 1500 ml Output Urine Total 1500 ml # Voids 7 # Bowel Movements 2 Laboratory Tests 07/21/19 09:35: White Blood Count 7.2, Red Blood Count 4.98, Hemoglobin 13.9L, Hematocrit 41.6L , Mean Corpuscular Volume 84, Mean Corpuscular Hemoglobin 28.0, Mean Corpuscular Hemoglobin Concent 33.5, Red Cell Distribution Width 11.1L, Platelet Count 355, Mean Platelet Volume 6.2L, Neutrophils (%) (Auto) 71.3, Lymphocytes (%) (Auto) 17.5L, Monocytes (%) (Auto) 8.8, Eosinophils (%) (Auto) 1.8, Basophils (%) (Auto) 0.6 07/22/19 04:40: Sodium Level 139, Potassium Level 4.1, Chloride Level 103, Carbon Dioxide Level 30, Anion Gap 6, Blood Urea Nitrogen 9, Creatinine 1.0, Estimat Glomerular Filtration Rate > 60, Glucose Level 78, Calcium Level 8.6, Magnesium Level 2.3 Height (Feet): 5 Height (Inches): 7.00 Weight (Pounds): 209 Objective General Appearance: WD/WN Neck: supple Cardiovascular: regular rhythm Respiratory/Chest: lungs clear Abdomen: soft Edema: no edema noted Arm (L), no edema noted Arm (R), no edema noted Leg (L), no edema noted Leg (R), no edema noted Pedal (L), no edema noted Pedal (R), no edema noted Generalized Clark Wan MD July 22, 2019 08:01
[2019-07-22] MEDS: Enoxaparin 40mg Inj SUBQ SCH (08:27)
--- NOTE | 2019-07-22 11:02 | Infectious Diseases Prog Note ---
Assessment/Plan Assessment/Plan A 1. COVID19 pneumonia 2. pleural effusion 3. respiratory failure P 1. continue ceftriaxone 2. continue hydroxychloroquine 3. will follow up cultures Subjective ROS Limited/Unobtainable: Yes Constitutional: Denies: fever Respiratory: Reports: shortness of breath Gastrointestinal/Abdominal: Reports: no symptoms Genitourinary: Reports: no symptoms Allergies: Coded Allergies: No Known Allergies (Unverified , 07/18/19) Objective Vital Signs Last 24 Hour Vital Signs Date Time Temp Pulse Resp B/P (MAP) Pulse Ox O2 Delivery O2 Flow Rate FiO2 07/22/19 08:26 78 136/72 07/22/19 08:00 97.3 78 20 136/72 (93) 96 07/22/19 04:00 65 07/22/19 04:00 Non-Rebreather 15.0 07/22/19 04:00 97.5 81 20 139/78 (98) 99 07/22/19 00:00 Non-Rebreather 15.0 07/22/19 00:00 56 07/22/19 00:00 97.7 73 20 145/82 (103) 98 07/21/19 20:07 70 142/80 07/21/19 20:00 Non-Rebreather 15.0 07/21/19 20:00 67 07/21/19 20:00 97.5 70 20 142/80 (100) 97 07/21/19 16:00 68 07/21/19 16:00 Non-Rebreather 15.0 07/21/19 15:35 97.3 71 20 148/77 (100) 96 07/21/19 12:00 Non-Rebreather 15.0 07/21/19 12:00 97.9 74 20 142/83 (102) 95 07/21/19 11:48 60 Height (Feet): 5 Height (Inches): 7.00 Weight (Pounds): 209 HEENT: mucous membranes moist Respiratory/Chest: other - oxygen by rebreathing mask Cardiovascular: normal rate Abdomen: soft, non tender Extremities: no edema Neurologic/Psychiatric: alert, responsive Laboratory Tests Test 07/22/19 04:40 Sodium Level 139 MMOL/L (136-145) Potassium Level 4.1 MMOL/L (3.5-5.1) Chloride Level 103 MMOL/L (98-107) Carbon Dioxide Level 30 MMOL/L (21-32) Anion Gap 6 mmol/L (5-15) Blood Urea Nitrogen 9 mg/dL (7-18) Creatinine 1.0 MG/DL (0.55-1.30) Estimat Glomerular Filtration Rate > 60 mL/min (>60) Glucose Level 78 MG/DL (74-106) Calcium Level 8.6 MG/DL (8.5-10.1) Magnesium Level 2.3 MG/DL (1.8-2.4) Current Medications Medications (Trade) Dose Ordered Sig/Devan Route PRN Reason Start Time Stop Time Status Last Admin Dose Admin Acetaminophen (Tylenol) 500 mg Q4H PRN ORAL Mild Pain (Pain Scale 1-3) 07/20/19 10:45 08/17/19 10:44 Ceftriaxone Sodium 1 gm/ Dextrose 55 ml @ 110 mls/hr Q24H IVPB 07/21/19 02:00 07/26/19 01:59 07/21/19 01:05 Enoxaparin Sodium (Lovenox) 40 mg DAILY SUBQ 07/21/19 09:00 10/16/19 08:59 07/22/19 08:27 Hydroxychloroquine Sulfate (Plaquenil) 200 mg Q12HR ORAL 07/20/19 21:00 07/22/19 21:01 07/22/19 08:26 Metoprolol Tartrate (Lopressor) 25 mg Q12HR ORAL 07/20/19 21:00 10/16/19 20:59 07/22/19 08:26 Ondansetron HCl (Zofran) 4 mg Q6H PRN IVP Nausea & Vomiting 07/20/19 10:45 08/17/19 10:44 Ricci Greco MD July 22, 2019 11:02
[2019-07-22 12:00] VITALS: BP 138/62
[2019-07-22 16:00] VITALS: BP 134/74
[2019-07-22 20:00] VITALS: BP 121/74
[2019-07-23] VITALS (7 sets, daily range): BP systolic 127–140; BP diastolic 62–87
[2019-07-23] MEDS: cefTRIAXone 1 GM in D5W 55 ML IVPB SCH (02:54)
[2019-07-23] MEDS: Enoxaparin 40mg Inj SUBQ SCH (08:32)
--- NOTE | 2019-07-23 10:26 | Infectious Diseases Prog Note ---
Assessment/Plan Assessment/Plan antibiotics : ceftriaxone A 1. COVID 19 pneumonia on 15 liters, O2 saturation 94 percent s/p hydroxychloroquine 2. pleural effusion 3. respiratory failure P 1. d/c ceftriaxone 2. will consider remdesivir EUA 3. will follow up cultures Subjective ROS Limited/Unobtainable: Yes Allergies: Coded Allergies: No Known Allergies (Unverified , 07/18/19) Objective Vital Signs Last 24 Hour Vital Signs Date Time Temp Pulse Resp B/P (MAP) Pulse Ox O2 Delivery O2 Flow Rate FiO2 07/23/19 08:33 54 136/62 07/23/19 08:00 97.5 76 20 136/73 (94) 94 07/23/19 08:00 Non-Rebreather 15.0 07/23/19 08:00 76 07/23/19 04:00 54 07/23/19 04:00 Non-Rebreather 15.0 07/23/19 04:00 97.4 61 20 136/62 (86) 99 07/23/19 00:00 98.6 61 20 131/64 (86) 100 07/23/19 00:00 Non-Rebreather 15.0 07/23/19 00:00 57 07/22/19 21:02 74 140/75 07/22/19 20:00 Non-Rebreather 15.0 07/22/19 20:00 97 Non-Rebreather 15.0 100 07/22/19 20:00 97.4 72 20 121/74 (90) 98 07/22/19 19:22 72 07/22/19 16:00 Non-Rebreather 15.0 07/22/19 16:00 66 07/22/19 16:00 96.6 64 20 134/74 (94) 100 07/22/19 12:00 Non-Rebreather 15.0 07/22/19 12:00 96.1 66 20 138/62 (87) 100 07/22/19 11:33 66 Height (Feet): 5 Height (Inches): 7.00 Weight (Pounds): 210 HEENT: other - on face mask Current Medications Medications (Trade) Dose Ordered Sig/Devan Route PRN Reason Start Time Stop Time Status Last Admin Dose Admin Acetaminophen (Tylenol) 500 mg Q4H PRN ORAL Mild Pain (Pain Scale 1-3) 07/20/19 10:45 08/17/19 10:44 Ceftriaxone Sodium 1 gm/ Dextrose 55 ml @ 110 mls/hr Q24H IVPB 07/21/19 02:00 07/26/19 01:59 07/23/19 02:54 Enoxaparin Sodium (Lovenox) 40 mg DAILY SUBQ 07/21/19 09:00 10/16/19 08:59 07/23/19 08:32 Metoprolol Tartrate (Lopressor) 25 mg Q12HR ORAL 07/20/19 21:00 10/16/19 20:59 07/23/19 08:33 Ondansetron HCl (Zofran) 4 mg Q6H PRN IVP Nausea & Vomiting 07/20/19 10:45 08/17/19 10:44 Cristine Kilgore MD July 23, 2019 10:26
[2019-07-23] MEDS ORDERED: Remdesivir Fact Sheet MISC SCH (11:45)
[2019-07-23] MEDS ORDERED: Loading Dose:Remdesivir 200mg/NS 210ml IV SCH (13:00)
--- NOTE | 2019-07-23 15:33 | General Progress Note ---
Assessment/Plan Problem List: (1) Pneumonia ICD Codes: J18.9 - Pneumonia, unspecified organism SNOMED: 687890416 Qualifiers: Qualified Codes: J18.9 - Pneumonia, unspecified organism (2) Suspected COVID-19 virus infection ICD Codes: Z20.828 - Contact with and (suspected) exposure to other viral communicable diseases SNOMED: 190350054 Status: stable Assessment/Plan: abx plaquenil Subjective ROS Limited/Unobtainable: No Constitutional: Reports: malaise, weakness HEENT: Reports: no symptoms Cardiovascular: Reports: no symptoms Respiratory: Reports: shortness of breath Gastrointestinal/Abdominal: Reports: no symptoms Genitourinary: Reports: no symptoms Neurologic/Psychiatric: Reports: no symptoms Endocrine: Reports: no symptoms Hematologic/Lymphatic: Reports: no symptoms Allergies: Coded Allergies: No Known Allergies (Unverified , 07/18/19) All Systems: reviewed and negative except above Subjective no change. on nrb. covid 19 pcr positive. on plaquenil. on abx. remains on nrb Objective Last 24 Hour Vital Signs Date Time Temp Pulse Resp B/P (MAP) Pulse Ox O2 Delivery O2 Flow Rate FiO2 07/23/19 12:00 97.1 79 20 127/87 (100) 95 07/23/19 12:00 Non-Rebreather 15.0 07/23/19 11:31 66 07/23/19 08:33 54 136/62 07/23/19 08:00 97.5 76 20 136/73 (94) 94 07/23/19 08:00 Non-Rebreather 15.0 07/23/19 08:00 76 07/23/19 04:00 54 07/23/19 04:00 Non-Rebreather 15.0 07/23/19 04:00 97.4 61 20 136/62 (86) 99 07/23/19 00:00 98.6 61 20 131/64 (86) 100 07/23/19 00:00 Non-Rebreather 15.0 07/23/19 00:00 57 07/22/19 21:02 74 140/75 07/22/19 20:00 Non-Rebreather 15.0 07/22/19 20:00 97 Non-Rebreather 15.0 100 07/22/19 20:00 97.4 72 20 121/74 (90) 98 07/22/19 19:22 72 07/22/19 16:00 Non-Rebreather 15.0 07/22/19 16:00 66 07/22/19 16:00 96.6 64 20 134/74 (94) 100 Intake and Output 07/22/19 07/23/19 19:00 07:00 Intake Total 1340 ml Output Total 1976 ml Balance -636 ml Intake Oral 1340 ml Output Urine Total 1975 ml Stool Total 1 ml # Voids 4 # Bowel Movements 1 Height (Feet): 5 Height (Inches): 7.00 Weight (Pounds): 210 Objective General Appearance: WD/WN Neck: supple Cardiovascular: regular rhythm Respiratory/Chest: lungs clear Abdomen: soft Edema: no edema noted Arm (L), no edema noted Arm (R), no edema noted Leg (L), no edema noted Leg (R), no edema noted Pedal (L), no edema noted Pedal (R), no edema noted Generalized Clark Wan MD July 23, 2019 15:33
[2019-07-24 03:33] VITALS: BP 136/74
[2019-07-24 07:31] LABS: BASOPHILS % (AUTO) 0.7 % (0.0-2.0); EOSINOPHILS % (AUTO) 2.5 % (0.0-3.0); HEMATOCRIT 42.9 % (42.0-52.0); HEMOGLOBIN 14.3 G/DL (14.2-18.0); LYMPHOCYTES % (AUTO) 28.2 % (20.0-45.0); MEAN CORPUSCULAR VOLUME 84 FL (80-99); MONOCYTES % (AUTO) 10.6 % (1.0-10.0); PLATELET COUNT 430 K/UL (150-450); RED BLOOD COUNT 5.08 M/UL (4.70-6.10); RED CELL DISTRIBUTION WIDTH 11.2 % (11.6-14.8); WHITE BLOOD COUNT 6.3 K/UL (4.8-10.8)
[2019-07-24 07:41] LABS: ALANINE AMINOTRANSFERASE 165 U/L (12-78); ALBUMIN 2.6 G/DL (3.4-5.0); ALBUMIN/GLOBULIN RATIO 0.5 (1.0-2.7); ALKALINE PHOSPHATASE 69 U/L (46-116); ANION GAP 6 mmol/L (5-15); ASPARTATE AMINO TRANSFERASE 137 U/L (15-37); BILIRUBIN,DIRECT < 0.1 MG/DL (0.0-0.3); BILIRUBIN,TOTAL 0.3 MG/DL (0.2-1.0); BLOOD UREA NITROGEN 13 mg/dL (7-18); CALCIUM 8.8 MG/DL (8.5-10.1); CARBON DIOXIDE 30 MMOL/L (21-32); CHLORIDE 103 MMOL/L (98-107); CREATININE 0.9 MG/DL (0.55-1.30); POTASSIUM 4.5 MMOL/L (3.5-5.1); SODIUM 139 MMOL/L (136-145)
[2019-07-24 08:00] VITALS: BP 140/58
--- NOTE | 2019-07-24 08:32 | General Progress Note ---
Assessment/Plan Problem List: (1) Pneumonia ICD Codes: J18.9 - Pneumonia, unspecified organism SNOMED: 272521827 Qualifiers: Qualified Codes: J18.9 - Pneumonia, unspecified organism (2) Suspected COVID-19 virus infection ICD Codes: Z20.828 - Contact with and (suspected) exposure to other viral communicable diseases SNOMED: 651128461 Status: stable Assessment/Plan: o2 repeat lfts possible remdesivir per ID dvt prophylaxis Subjective ROS Limited/Unobtainable: No Constitutional: Reports: no symptoms HEENT: Reports: no symptoms Cardiovascular: Reports: no symptoms Gastrointestinal/Abdominal: Reports: no symptoms Genitourinary: Reports: no symptoms Neurologic/Psychiatric: Reports: no symptoms Endocrine: Reports: no symptoms Hematologic/Lymphatic: Reports: no symptoms Allergies: Coded Allergies: No Known Allergies (Unverified , 07/18/19) All Systems: reviewed and negative except above Subjective no events. stable on nrb. RN trying to wean. Objective Last 24 Hour Vital Signs Date Time Temp Pulse Resp B/P (MAP) Pulse Ox O2 Delivery O2 Flow Rate FiO2 07/24/19 08:00 97.5 61 18 140/58 (85) 100 07/24/19 04:00 56 07/24/19 03:36 Non-Rebreather 15.0 07/24/19 03:33 97.5 58 136/74 (94) 100 07/24/19 00:00 61 07/24/19 00:00 Non-Rebreather 15.0 07/23/19 23:06 97.5 60 140/73 (95) 100 07/23/19 21:46 65 127/69 07/23/19 20:00 64 07/23/19 20:00 Non-Rebreather 15.0 07/23/19 20:00 97.3 65 20 127/69 (88) 100 07/23/19 16:00 65 07/23/19 16:00 Non-Rebreather 15.0 07/23/19 16:00 99.0 72 20 135/68 (90) 98 07/23/19 12:00 97.1 79 20 127/87 (100) 95 07/23/19 12:00 Non-Rebreather 15.0 07/23/19 11:31 66 07/23/19 08:33 54 136/62 Intake and Output 07/23/19 07/24/19 19:00 07:00 Intake Total 650 ml Output Total 651 ml 980 ml Balance -1 ml -980 ml Intake Oral 650 ml Output Urine Total 650 ml 980 ml Stool Total 1 ml # Voids 3 Laboratory Tests 07/24/19 06:10: White Blood Count 6.3, Red Blood Count 5.08, Hemoglobin 14.3, Hematocrit 42.9, Mean Corpuscular Volume 84, Mean Corpuscular Hemoglobin 28.2, Mean Corpuscular Hemoglobin Concent 33.4, Red Cell Distribution Width 11.2L, Platelet Count 430, Mean Platelet Volume 7.2, Neutrophils (%) (Auto) 58.0, Lymphocytes (%) (Auto) 28.2, Monocytes (%) (Auto) 10.6H, Eosinophils (%) (Auto) 2.5, Basophils (%) ( Auto) 0.7, Sodium Level 139, Potassium Level 4.5, Chloride Level 103, Carbon Dioxide Level 30, Anion Gap 6, Blood Urea Nitrogen 13, Creatinine 0.9, Estimat Glomerular Filtration Rate > 60, Glucose Level 77, Calcium Level 8.8, Total Bilirubin 0.3, Direct Bilirubin < 0.1, Aspartate Amino Transf (AST/SGOT) 137H, Alanine Aminotransferase (ALT/SGPT) 165H, Alkaline Phosphatase 69, Total Protein 7.8, Albumin 2.6L, Globulin 5.2, Albumin/Globulin Ratio 0.5L Height (Feet): 5 Height (Inches): 7.00 Weight (Pounds): 179 Objective General Appearance: WD/WN Neck: supple Cardiovascular: regular rhythm Respiratory/Chest: lungs clear Abdomen: soft Edema: no edema noted Arm (L), no edema noted Arm (R), no edema noted Leg (L), no edema noted Leg (R), no edema noted Pedal (L), no edema noted Pedal (R), no edema noted Generalized Clark Wan MD July 24, 2019 08:32
[2019-07-24] MEDS: Enoxaparin 40mg Inj SUBQ SCH (08:52)
[2019-07-24 12:00] VITALS: BP 129/66
[2019-07-24] MEDS ORDERED: Maintenance Dose:Remdesivir 100mg/NS 230ml x 4 Doses IV SCH (13:00)
[2019-07-24 16:00] VITALS: BP 133/69
[2019-07-24] MEDS ORDERED: NS 275ml ONE (17:36)
[2019-07-24 20:00] VITALS: BP 134/68
[2019-07-25] VITALS: BP 134/68
[2019-07-25 04:00] VITALS: BP 120/64
[2019-07-25 07:19] LABS: BASOPHILS % (AUTO) 0.9 % (0.0-2.0); EOSINOPHILS % (AUTO) 2.5 % (0.0-3.0); HEMATOCRIT 40.5 % (42.0-52.0); HEMOGLOBIN 13.7 G/DL (14.2-18.0); LYMPHOCYTES % (AUTO) 26.5 % (20.0-45.0); MEAN CORPUSCULAR VOLUME 84 FL (80-99); MONOCYTES % (AUTO) 10.7 % (1.0-10.0); NEUTROPHILS % (AUTO) 59.5 % (45.0-75.0); PLATELET COUNT 415 K/UL (150-450); RED CELL DISTRIBUTION WIDTH 11.3 % (11.6-14.8); WHITE BLOOD COUNT 6.1 K/UL (4.8-10.8)
--- NOTE | 2019-07-25 07:38 | General Progress Note ---
Assessment/Plan Problem List: (1) Pneumonia ICD Codes: J18.9 - Pneumonia, unspecified organism SNOMED: 152963733 Qualifiers: Qualified Codes: J18.9 - Pneumonia, unspecified organism (2) Suspected COVID-19 virus infection ICD Codes: Z20.828 - Contact with and (suspected) exposure to other viral communicable diseases SNOMED: 401633904 Status: stable Assessment/Plan: o2 repeat lfts possible remdesivir per ID dvt prophylaxis Subjective ROS Limited/Unobtainable: No Constitutional: Reports: malaise, weakness HEENT: Reports: no symptoms Cardiovascular: Reports: no symptoms Respiratory: Reports: shortness of breath Gastrointestinal/Abdominal: Reports: no symptoms Genitourinary: Reports: no symptoms Neurologic/Psychiatric: Reports: no symptoms Endocrine: Reports: no symptoms Hematologic/Lymphatic: Reports: no symptoms Allergies: Coded Allergies: No Known Allergies (Unverified , 07/18/19) All Systems: reviewed and negative except above Subjective weaned down to 50% on venti mask Objective Last 24 Hour Vital Signs Date Time Temp Pulse Resp B/P (MAP) Pulse Ox O2 Delivery O2 Flow Rate FiO2 07/25/19 04:00 14.0 55 07/25/19 04:00 97.2 61 20 120/64 (82) 98 07/25/19 04:00 Venturi Mask 14.0 07/25/19 03:51 64 07/25/19 00:00 Venturi Mask 14.0 07/25/19 00:00 97.7 60 20 134/68 (90) 100 07/25/19 00:00 59 07/25/19 00:00 14.0 55 07/24/19 20:31 64 134/68 07/24/19 20:09 99 Venturi Mask 14.0 55 07/24/19 20:00 Venturi Mask 14.0 07/24/19 20:00 14.0 55 07/24/19 20:00 97.9 73 20 134/68 (90) 100 07/24/19 19:27 71 07/24/19 16:33 66 07/24/19 16:00 Venturi Mask 14.0 07/24/19 16:00 98.2 71 22 133/69 (90) 95 07/24/19 12:00 Non-Rebreather 15.0 07/24/19 12:00 97.7 69 22 129/66 (87) 99 07/24/19 11:41 68 07/24/19 08:51 61 140/58 07/24/19 08:00 Non-Rebreather 15.0 07/24/19 08:00 97.5 61 18 140/58 (85) 100 07/24/19 08:00 74 Intake and Output 07/24/19 07/25/19 18:59 06:59 Intake Total 1090 ml Output Total 800 ml 800 ml Balance 290 ml -800 ml Intake Oral 840 ml IV Total 250 ml Output Urine Total 800 ml 800 ml # Bowel Movements 2 Laboratory Tests 07/25/19 05:45: White Blood Count 6.1, Red Blood Count 4.80, Hemoglobin 13.7L, Hematocrit 40.5L , Mean Corpuscular Volume 84, Mean Corpuscular Hemoglobin 28.5, Mean Corpuscular Hemoglobin Concent 33.8, Red Cell Distribution Width 11.3L, Platelet Count 415, Mean Platelet Volume 7.4, Neutrophils (%) (Auto) 59.5, Lymphocytes (%) (Auto) 26.5, Monocytes (%) (Auto) 10.7H, Eosinophils (%) (Auto) 2.5, Basophils (%) (Auto) 0.9, Sodium Level [Pending], Potassium Level [Pending] , Chloride Level [Pending], Carbon Dioxide Level [Pending], Blood Urea Nitrogen [Pending], Creatinine [Pending], Estimat Glomerular Filtration Rate [Pending], Glucose Level [Pending], Calcium Level [Pending], Total Bilirubin [Pending], Direct Bilirubin [Pending], Aspartate Amino Transf (AST/SGOT) [Pending], Alanine Aminotransferase (ALT/SGPT) [Pending], Alkaline Phosphatase [Pending], Total Protein [Pending], Albumin [Pending], Globulin [Pending] Height (Feet): 5 Height (Inches): 7.00 Weight (Pounds): 181 Objective General Appearance: WD/WN Neck: supple Cardiovascular: regular rhythm Respiratory/Chest: lungs clear Abdomen: soft Edema: no edema noted Arm (L), no edema noted Arm (R), no edema noted Leg (L), no edema noted Leg (R), no edema noted Pedal (L), no edema noted Pedal (R), no edema noted Generalized Clark Wan MD July 25, 2019 07:38
[2019-07-25 07:54] LABS: ALANINE AMINOTRANSFERASE 147 U/L (12-78); ALBUMIN 2.5 G/DL (3.4-5.0); ALBUMIN/GLOBULIN RATIO 0.5 (1.0-2.7); ALKALINE PHOSPHATASE 70 U/L (46-116); ANION GAP 4 mmol/L (5-15); ASPARTATE AMINO TRANSFERASE 95 U/L (15-37); BILIRUBIN,DIRECT 0.1 MG/DL (0.0-0.3); BILIRUBIN,TOTAL 0.4 MG/DL (0.2-1.0); BLOOD UREA NITROGEN 14 mg/dL (7-18); CALCIUM 8.8 MG/DL (8.5-10.1); CARBON DIOXIDE 32 MMOL/L (21-32); CHLORIDE 104 MMOL/L (98-107); POTASSIUM 4.2 MMOL/L (3.5-5.1); SODIUM 140 MMOL/L (136-145)
[2019-07-25 08:00] VITALS: BP 146/81
[2019-07-25] MEDS: Enoxaparin 40mg Inj SUBQ SCH (09:47)
--- NOTE | 2019-07-25 11:18 | Infectious Diseases Prog Note ---
Assessment/Plan Assessment/Plan A 1. COVID19 pneumonia 2. pleural effusion 3. respiratory failure P 1. continue Remdesivir Subjective ROS Limited/Unobtainable: Yes Constitutional: Denies: fever Respiratory: Reports: no symptoms Allergies: Coded Allergies: No Known Allergies (Unverified , 07/18/19) Objective Vital Signs Last 24 Hour Vital Signs Date Time Temp Pulse Resp B/P (MAP) Pulse Ox O2 Delivery O2 Flow Rate FiO2 07/25/19 09:45 70 146/81 07/25/19 08:00 Non-Rebreather 14.0 07/25/19 08:00 14.0 55 07/25/19 08:00 98.1 70 20 146/81 (102) 94 07/25/19 08:00 54 07/25/19 04:00 14.0 55 07/25/19 04:00 97.2 61 20 120/64 (82) 98 07/25/19 04:00 Venturi Mask 14.0 07/25/19 03:51 64 07/25/19 00:00 Venturi Mask 14.0 07/25/19 00:00 97.7 60 20 134/68 (90) 100 07/25/19 00:00 59 07/25/19 00:00 14.0 55 07/24/19 20:31 64 134/68 07/24/19 20:09 99 Venturi Mask 14.0 55 07/24/19 20:00 Venturi Mask 14.0 07/24/19 20:00 14.0 55 07/24/19 20:00 97.9 73 20 134/68 (90) 100 07/24/19 19:27 71 07/24/19 16:33 66 07/24/19 16:00 Venturi Mask 14.0 07/24/19 16:00 98.2 71 22 133/69 (90) 95 07/24/19 12:00 Non-Rebreather 15.0 07/24/19 12:00 97.7 69 22 129/66 (87) 99 07/24/19 11:41 68 Height (Feet): 5 Height (Inches): 7.00 Weight (Pounds): 181 General Appearance: no acute distress HEENT: mucous membranes moist Respiratory/Chest: other - oxygen by mask Cardiovascular: normal rate Abdomen: soft, non tender Extremities: no edema Neurologic/Psychiatric: alert, oriented x 3, responsive Laboratory Tests Test 07/25/19 05:45 White Blood Count 6.1 K/UL (4.8-10.8) Red Blood Count 4.80 M/UL (4.70-6.10) Hemoglobin 13.7 G/DL (14.2-18.0) L Hematocrit 40.5 % (42.0-52.0) L Mean Corpuscular Volume 84 FL (80-99) Mean Corpuscular Hemoglobin 28.5 PG (27.0-31.0) Mean Corpuscular Hemoglobin Concent 33.8 G/DL (32.0-36.0) Red Cell Distribution Width 11.3 % (11.6-14.8) L Platelet Count 415 K/UL (150-450) Mean Platelet Volume 7.4 FL (6.5-10.1) Neutrophils (%) (Auto) 59.5 % (45.0-75.0) Lymphocytes (%) (Auto) 26.5 % (20.0-45.0) Monocytes (%) (Auto) 10.7 % (1.0-10.0) H Eosinophils (%) (Auto) 2.5 % (0.0-3.0) Basophils (%) (Auto) 0.9 % (0.0-2.0) Sodium Level 140 MMOL/L (136-145) Potassium Level 4.2 MMOL/L (3.5-5.1) Chloride Level 104 MMOL/L (98-107) Carbon Dioxide Level 32 MMOL/L (21-32) Anion Gap 4 mmol/L (5-15) L Blood Urea Nitrogen 14 mg/dL (7-18) Creatinine 1.0 MG/DL (0.55-1.30) Estimat Glomerular Filtration Rate > 60 mL/min (>60) Glucose Level 81 MG/DL (74-106) Calcium Level 8.8 MG/DL (8.5-10.1) Total Bilirubin 0.4 MG/DL (0.2-1.0) Direct Bilirubin 0.1 MG/DL (0.0-0.3) Aspartate Amino Transf (AST/SGOT) 95 U/L (15-37) H Alanine Aminotransferase (ALT/SGPT) 147 U/L (12-78) H Alkaline Phosphatase 70 U/L (46-116) Total Protein 7.4 G/DL (6.4-8.2) Albumin 2.5 G/DL (3.4-5.0) L Globulin 4.9 g/dL Albumin/Globulin Ratio 0.5 (1.0-2.7) L Current Medications Medications (Trade) Dose Ordered Sig/Devan Route PRN Reason Start Time Stop Time Status Last Admin Dose Admin Acetaminophen (Tylenol) 500 mg Q4H PRN ORAL Mild Pain (Pain Scale 1-3) 07/20/19 10:45 08/17/19 10:44 Enoxaparin Sodium (Lovenox) 40 mg DAILY SUBQ 07/21/19 09:00 10/16/19 08:59 07/25/19 09:47 Metoprolol Tartrate (Lopressor) 25 mg Q12HR ORAL 07/20/19 21:00 10/16/19 20:59 07/25/19 09:45 Ondansetron HCl (Zofran) 4 mg Q6H PRN IVP Nausea & Vomiting 07/20/19 10:45 08/17/19 10:44 Remdesivir 100 mg/ Sodium Chloride 250 ml @ 250 mls/hr Q24H IV 07/24/19 13:00 07/27/19 13:59 07/24/19 13:21 Ricci Greco MD July 25, 2019 11:18
[2019-07-25 12:00] VITALS: BP 137/69
[2019-07-25] MEDS ORDERED: Maintenance Dose:Remdesivir 100mg/NS 230ml x 4 Doses IV SCH (13:45)
[2019-07-25] MEDS ORDERED: Acetaminophen 500mg (ES) tab ORAL PRN (14:45)
[2019-07-25 16:00] VITALS: BP 135/70
[2019-07-25] MEDS ORDERED: NS 275ml ONE (18:01)
[2019-07-25 20:00] VITALS: BP 135/72
[2019-07-26] VITALS: BP 132/74
[2019-07-26 04:00] VITALS: BP 139/65
[2019-07-26 07:25] LABS: BASOPHILS % (AUTO) 1.1 % (0.0-2.0); EOSINOPHILS % (AUTO) 2.4 % (0.0-3.0); HEMATOCRIT 42.3 % (42.0-52.0); HEMOGLOBIN 14.3 G/DL (14.2-18.0); LYMPHOCYTES % (AUTO) 27.5 % (20.0-45.0); MEAN CORPUSCULAR VOLUME 85 FL (80-99); MONOCYTES % (AUTO) 11.1 % (1.0-10.0); NEUTROPHILS % (AUTO) 57.9 % (45.0-75.0); PLATELET COUNT 388 K/UL (150-450); RED BLOOD COUNT 4.99 M/UL (4.70-6.10); RED CELL DISTRIBUTION WIDTH 11.4 % (11.6-14.8); WHITE BLOOD COUNT 5.8 K/UL (4.8-10.8)
[2019-07-26 07:50] LABS: ALANINE AMINOTRANSFERASE 163 U/L (12-78); ALBUMIN 2.6 G/DL (3.4-5.0); ALBUMIN/GLOBULIN RATIO 0.5 (1.0-2.7); ALKALINE PHOSPHATASE 73 U/L (46-116); ANION GAP 6 mmol/L (5-15); ASPARTATE AMINO TRANSFERASE 97 U/L (15-37); BILIRUBIN,DIRECT 0.1 MG/DL (0.0-0.3); BILIRUBIN,TOTAL 0.3 MG/DL (0.2-1.0); BLOOD UREA NITROGEN 12 mg/dL (7-18); CALCIUM 8.6 MG/DL (8.5-10.1); CARBON DIOXIDE 31 MMOL/L (21-32); CHLORIDE 104 MMOL/L (98-107); POTASSIUM 4.2 MMOL/L (3.5-5.1); SODIUM 141 MMOL/L (136-145)
[2019-07-26 08:00] VITALS: BP 132/73
--- NOTE | 2019-07-26 08:24 | General Progress Note ---
Assessment/Plan Problem List: (1) Pneumonia ICD Codes: J18.9 - Pneumonia, unspecified organism SNOMED: 618332919 Qualifiers: Qualified Codes: J18.9 - Pneumonia, unspecified organism (2) Suspected COVID-19 virus infection ICD Codes: Z20.828 - Contact with and (suspected) exposure to other viral communicable diseases SNOMED: [id number] Status: stable Assessment/Plan: o2 repeat lfts dc metoprolol- bradycardia emdesivir per ID dvt prophylaxis Subjective ROS Limited/Unobtainable: No Constitutional: Reports: malaise, weakness HEENT: Reports: no symptoms Cardiovascular: Reports: no symptoms Respiratory: Reports: shortness of breath Gastrointestinal/Abdominal: Reports: no symptoms Genitourinary: Reports: no symptoms Neurologic/Psychiatric: Reports: no symptoms Endocrine: Reports: no symptoms Hematologic/Lymphatic: Reports: no symptoms Allergies: Coded Allergies: No Known Allergies (Unverified , 07/18/19) All Systems: reviewed and negative except above Subjective on venti mask. decreased o2 requirements. on remdesivir. Objective Last 24 Hour Vital Signs Date Time Temp Pulse Resp B/P (MAP) Pulse Ox O2 Delivery O2 Flow Rate FiO2 07/26/19 04:29 Simple Mask 8.0 07/26/19 04:00 8.0 60 07/26/19 04:00 97.9 52 20 139/65 (89) 95 07/26/19 04:00 52 07/26/19 00:17 Simple Mask 8.0 07/26/19 00:15 8.0 60 07/26/19 00:00 97.7 56 22 132/74 (93) 97 07/26/19 00:00 54 07/25/19 22:00 98 Venturi Mask 14.0 55 07/25/19 21:00 8.0 60 07/25/19 20:48 62 135/72 07/25/19 20:00 67 07/25/19 20:00 Simple Mask 8.0 07/25/19 20:00 97.5 62 22 135/72 (93) 95 07/25/19 16:00 8.0 60 07/25/19 16:00 97.7 60 22 135/70 (91) 94 07/25/19 15:56 Simple Mask 8.0 07/25/19 15:09 60 07/25/19 12:00 97.9 65 22 137/69 (91) 93 07/25/19 12:00 55 07/25/19 12:00 8.0 60 07/25/19 12:00 8.0 60 07/25/19 12:00 Simple Mask 8.0 07/25/19 09:45 70 146/81 Intake and Output 07/25/19 07/26/19 18:59 06:59 Intake Total 360 ml Output Total 450 ml Balance -90 ml Intake Oral 360 ml Output Urine Total 450 ml Laboratory Tests 07/26/19 05:52: White Blood Count 5.8, Red Blood Count 4.99, Hemoglobin 14.3, Hematocrit 42.3, Mean Corpuscular Volume 85, Mean Corpuscular Hemoglobin 28.6, Mean Corpuscular Hemoglobin Concent 33.7, Red Cell Distribution Width 11.4L, Platelet Count 388, Mean Platelet Volume 8.1, Neutrophils (%) (Auto) 57.9, Lymphocytes (%) (Auto) 27.5, Monocytes (%) (Auto) 11.1H, Eosinophils (%) (Auto) 2.4, Basophils (%) ( Auto) 1.1, Sodium Level 141, Potassium Level 4.2, Chloride Level 104, Carbon Dioxide Level 31, Anion Gap 6, Blood Urea Nitrogen 12, Creatinine 1.0, Estimat Glomerular Filtration Rate > 60, Glucose Level 81, Calcium Level 8.6, Total Bilirubin 0.3, Direct Bilirubin 0.1, Aspartate Amino Transf (AST/SGOT) 97H, Alanine Aminotransferase (ALT/SGPT) 163H, Alkaline Phosphatase 73, Total Protein 7.5, Albumin 2.6L, Globulin 4.9, Albumin/Globulin Ratio 0.5L Height (Feet): 5 Height (Inches): 7.00 Weight (Pounds): 181 Objective General Appearance: WD/WN Neck: supple Cardiovascular: regular rhythm Respiratory/Chest: lungs clear Abdomen: soft Edema: no edema noted Arm (L), no edema noted Arm (R), no edema noted Leg (L), no edema noted Leg (R), no edema noted Pedal (L), no edema noted Pedal (R), no edema noted Generalized Clark Wan MD Jul 26, 2019 08:24
[2019-07-26] MEDS: Enoxaparin 40mg Inj SUBQ SCH (09:22)
--- NOTE | 2019-07-26 10:53 | Infectious Diseases Prog Note ---
Assessment/Plan Assessment/Plan antibiotics : remdesivir 5.29.20 - A 1. COVID 19 pneumonia on 8 liters O2, saturation 96 percent s/p hydroxychloroquine 2. pleural effusion 3. respiratory failure resolved P 1. continue remdesivir EUA day 4 2. will follow up cultures Subjective Constitutional: Denies: fever, chills Respiratory: Reports: shortness of breath; Denies: dry cough Gastrointestinal/Abdominal: Denies: nausea, vomiting, diarrhea Musculoskeletal: Denies: pain Allergies: Coded Allergies: No Known Allergies (Unverified , 07/18/19) Objective Vital Signs Last 24 Hour Vital Signs Date Time Temp Pulse Resp B/P (MAP) Pulse Ox O2 Delivery O2 Flow Rate FiO2 07/26/19 09:00 Simple Mask 8.0 07/26/19 09:00 8.0 60 07/26/19 08:00 97.9 69 20 132/73 (92) 96 07/26/19 08:00 70 07/26/19 04:29 Simple Mask 8.0 07/26/19 04:00 8.0 60 07/26/19 04:00 97.9 52 20 139/65 (89) 95 07/26/19 04:00 52 07/26/19 00:17 Simple Mask 8.0 07/26/19 00:15 8.0 60 07/26/19 00:00 97.7 56 22 132/74 (93) 97 07/26/19 00:00 54 07/25/19 22:00 98 Venturi Mask 14.0 55 07/25/19 21:00 8.0 60 07/25/19 20:48 62 135/72 07/25/19 20:00 67 07/25/19 20:00 Simple Mask 8.0 07/25/19 20:00 97.5 62 22 135/72 (93) 95 07/25/19 16:00 8.0 60 07/25/19 16:00 97.7 60 22 135/70 (91) 94 07/25/19 15:56 Simple Mask 8.0 07/25/19 15:09 60 07/25/19 12:00 97.9 65 22 137/69 (91) 93 07/25/19 12:00 55 07/25/19 12:00 8.0 60 07/25/19 12:00 8.0 60 07/25/19 12:00 Simple Mask 8.0 Height (Feet): 5 Height (Inches): 7.00 Weight (Pounds): 181 Laboratory Tests Test 07/26/19 05:52 White Blood Count 5.8 K/UL (4.8-10.8) Red Blood Count 4.99 M/UL (4.70-6.10) Hemoglobin 14.3 G/DL (14.2-18.0) Hematocrit 42.3 % (42.0-52.0) Mean Corpuscular Volume 85 FL (80-99) Mean Corpuscular Hemoglobin 28.6 PG (27.0-31.0) Mean Corpuscular Hemoglobin Concent 33.7 G/DL (32.0-36.0) Red Cell Distribution Width 11.4 % (11.6-14.8) L Platelet Count 388 K/UL (150-450) Mean Platelet Volume 8.1 FL (6.5-10.1) Neutrophils (%) (Auto) 57.9 % (45.0-75.0) Lymphocytes (%) (Auto) 27.5 % (20.0-45.0) Monocytes (%) (Auto) 11.1 % (1.0-10.0) H Eosinophils (%) (Auto) 2.4 % (0.0-3.0) Basophils (%) (Auto) 1.1 % (0.0-2.0) Sodium Level 141 MMOL/L (136-145) Potassium Level 4.2 MMOL/L (3.5-5.1) Chloride Level 104 MMOL/L (98-107) Carbon Dioxide Level 31 MMOL/L (21-32) Anion Gap 6 mmol/L (5-15) Blood Urea Nitrogen 12 mg/dL (7-18) Creatinine 1.0 MG/DL (0.55-1.30) Estimat Glomerular Filtration Rate > 60 mL/min (>60) Glucose Level 81 MG/DL (74-106) Calcium Level 8.6 MG/DL (8.5-10.1) Total Bilirubin 0.3 MG/DL (0.2-1.0) Direct Bilirubin 0.1 MG/DL (0.0-0.3) Aspartate Amino Transf (AST/SGOT) 97 U/L (15-37) H Alanine Aminotransferase (ALT/SGPT) 163 U/L (12-78) H Alkaline Phosphatase 73 U/L (46-116) Total Protein 7.5 G/DL (6.4-8.2) Albumin 2.6 G/DL (3.4-5.0) L Globulin 4.9 g/dL Albumin/Globulin Ratio 0.5 (1.0-2.7) L Current Medications Medications (Trade) Dose Ordered Sig/Devan Route PRN Reason Start Time Stop Time Status Last Admin Dose Admin Acetaminophen (Tylenol) 500 mg Q4H PRN ORAL Mild Pain (Pain Scale 1-3) 07/25/19 14:45 08/17/19 10:44 Enoxaparin Sodium (Lovenox) 40 mg DAILY SUBQ 07/26/19 09:00 10/16/19 08:59 07/26/19 09:22 Ondansetron HCl (Zofran) 4 mg Q6H PRN IVP Nausea & Vomiting 07/25/19 13:11 08/17/19 13:10 Remdesivir 100 mg/ Sodium Chloride 250 ml @ 250 mls/hr Q24H IV 07/26/19 13:00 07/28/19 13:59 Cristine Kilgore MD Jul 26, 2019 10:53
[2019-07-26 12:00] VITALS: BP 129/73
[2019-07-26] MEDS ORDERED: Remdesivir 100mg 100 MG in NS 230 ML IV SCH (13:00)
--- NOTE | 2019-07-26 14:53 | Diagnostic Imaging Report ---
Indication: Cough Technique: One view of the chest Comparison: none Findings: The heart is enlarged. Again demonstrated is bilateral diffuse interstitial and airspace disease, which appears slightly worse than on the prior study. Impression: Since 07/18/2019, slight worsening of bilateral infiltrates versus edema
[2019-07-26 16:00] VITALS: BP 128/66
[2019-07-26] MEDS ORDERED: Tubing IV Secondary IV ONE (17:13)
[2019-07-26 20:00] VITALS: BP 122/67
[2019-07-27] VITALS: BP 121/65
[2019-07-27 04:00] VITALS: BP 120/72
[2019-07-27 07:07] LABS: ALANINE AMINOTRANSFERASE 154 U/L (12-78); ALBUMIN 2.6 G/DL (3.4-5.0); ALBUMIN/GLOBULIN RATIO 0.6 (1.0-2.7); ALKALINE PHOSPHATASE 73 U/L (46-116); ANION GAP 5 mmol/L (5-15); ASPARTATE AMINO TRANSFERASE 85 U/L (15-37); BILIRUBIN,DIRECT 0.1 MG/DL (0.0-0.3); BILIRUBIN,TOTAL 0.3 MG/DL (0.2-1.0); BLOOD UREA NITROGEN 14 mg/dL (7-18); CALCIUM 8.5 MG/DL (8.5-10.1); CARBON DIOXIDE 32 MMOL/L (21-32); CHLORIDE 105 MMOL/L (98-107); CREATININE 0.9 MG/DL (0.55-1.30); POTASSIUM 4.1 MMOL/L (3.5-5.1); SODIUM 141 MMOL/L (136-145)
[2019-07-27 07:08] LABS: BASOPHILS % (AUTO) 1.3 % (0.0-2.0); EOSINOPHILS % (AUTO) 2.3 % (0.0-3.0); HEMATOCRIT 42.1 % (42.0-52.0); HEMOGLOBIN 14.3 G/DL (14.2-18.0); LYMPHOCYTES % (AUTO) 31.4 % (20.0-45.0); MEAN CORPUSCULAR VOLUME 84 FL (80-99); MONOCYTES % (AUTO) 9.5 % (1.0-10.0); NEUTROPHILS % (AUTO) 55.5 % (45.0-75.0); PLATELET COUNT 364 K/UL (150-450); RED BLOOD COUNT 5.03 M/UL (4.70-6.10); RED CELL DISTRIBUTION WIDTH 11.4 % (11.6-14.8); WHITE BLOOD COUNT 5.7 K/UL (4.8-10.8)
--- NOTE | 2019-07-27 07:14 | General Progress Note ---
Assessment/Plan Problem List: (1) Pneumonia ICD Codes: J18.9 - Pneumonia, unspecified organism SNOMED: 381772797 Qualifiers: Qualified Codes: J18.9 - Pneumonia, unspecified organism (2) Suspected COVID-19 virus infection ICD Codes: Z20.828 - Contact with and (suspected) exposure to other viral communicable diseases SNOMED: 068433501 Status: stable Assessment/Plan: o2 repeat lfts dc metoprolol- bradycardia emdesivir per ID dvt prophylaxis lasix x 1 Subjective ROS Limited/Unobtainable: No Constitutional: Reports: malaise, weakness HEENT: Reports: no symptoms Cardiovascular: Reports: no symptoms Respiratory: Reports: cough, shortness of breath Gastrointestinal/Abdominal: Reports: no symptoms Genitourinary: Reports: no symptoms Neurologic/Psychiatric: Reports: no symptoms Endocrine: Reports: no symptoms Hematologic/Lymphatic: Reports: no symptoms Allergies: Coded Allergies: No Known Allergies (Unverified , 07/18/19) All Systems: reviewed and negative except above Subjective on venti mask. decreased o2 requirements. on remdesivir. cxr with worsening infiltrates/chf Objective Last 24 Hour Vital Signs Date Time Temp Pulse Resp B/P (MAP) Pulse Ox O2 Delivery O2 Flow Rate FiO2 07/27/19 04:00 56 07/27/19 04:00 8.0 60 07/27/19 04:00 97.8 64 20 120/72 (88) 97 07/27/19 00:00 68 07/27/19 00:00 98.8 68 20 121/65 (83) 96 07/27/19 00:00 8.0 60 07/26/19 21:00 8.0 60 07/26/19 20:00 Simple Mask 8.0 07/26/19 20:00 65 07/26/19 20:00 98.7 64 20 122/67 (85) 97 07/26/19 16:00 8.0 60 07/26/19 16:00 68 07/26/19 16:00 97.7 65 20 128/66 (86) 94 07/26/19 16:00 Simple Mask 8.0 07/26/19 12:00 97.9 67 20 129/73 (91) 96 07/26/19 12:00 8.0 60 07/26/19 12:00 68 07/26/19 12:00 Simple Mask 8.0 07/26/19 09:00 Simple Mask 8.0 07/26/19 09:00 8.0 60 07/26/19 08:00 97.9 69 20 132/73 (92) 96 07/26/19 08:00 70 Intake and Output 07/26/19 07/27/19 19:00 07:00 Intake Total 620 ml Output Total 450 ml Balance 170 ml Intake Oral 620 ml Output Urine Total 450 ml Laboratory Tests 07/27/19 06:00: White Blood Count 5.7, Red Blood Count 5.03, Hemoglobin 14.3, Hematocrit 42.1, Mean Corpuscular Volume 84, Mean Corpuscular Hemoglobin 28.4, Mean Corpuscular Hemoglobin Concent 34.0, Red Cell Distribution Width 11.4L, Platelet Count 364, Mean Platelet Volume 7.1, Neutrophils (%) (Auto) 55.5, Lymphocytes (%) (Auto) 31.4, Monocytes (%) (Auto) 9.5, Eosinophils (%) (Auto) 2.3, Basophils (%) (Auto ) 1.3, Sodium Level 141, Potassium Level 4.1, Chloride Level 105, Carbon Dioxide Level 32, Anion Gap 5, Blood Urea Nitrogen 14, Creatinine 0.9, Estimat Glomerular Filtration Rate > 60, Glucose Level 86, Calcium Level 8.5, Total Bilirubin 0.3, Direct Bilirubin 0.1, Aspartate Amino Transf (AST/SGOT) 85H, Alanine Aminotransferase (ALT/SGPT) 154H, Alkaline Phosphatase 73, Total Protein 7.2, Albumin 2.6L, Globulin 4.6, Albumin/Globulin Ratio 0.6L Height (Feet): 5 Height (Inches): 7.00 Weight (Pounds): 180 Objective General Appearance: WD/WN Neck: supple Cardiovascular: regular rhythm Respiratory/Chest: lungs clear Abdomen: soft Edema: no edema noted Arm (L), no edema noted Arm (R), no edema noted Leg (L), no edema noted Leg (R), no edema noted Pedal (L), no edema noted Pedal (R), no edema noted Generalized Clark Wan MD Jul 27, 2019 07:14
[2019-07-27 08:00] VITALS: BP 136/71
[2019-07-27] MEDS: Enoxaparin 40mg Inj SUBQ SCH (08:14)
--- NOTE | 2019-07-27 10:11 | Infectious Diseases Prog Note ---
Assessment/Plan Assessment/Plan antibiotics : remdesivir 5.29.20 - A 1. COVID 19 pneumonia on 8 liters O2, saturation 99 percent s/p hydroxychloroquine 2. pleural effusion 3. respiratory failure resolved P 1. continue remdesivir EUA day 2. will follow up cultures Subjective Constitutional: Denies: fever, chills Respiratory: Reports: shortness of breath; Denies: dry cough Gastrointestinal/Abdominal: Denies: nausea, vomiting, diarrhea Musculoskeletal: Denies: pain Allergies: Coded Allergies: No Known Allergies (Unverified , 07/18/19) Objective Vital Signs Last 24 Hour Vital Signs Date Time Temp Pulse Resp B/P (MAP) Pulse Ox O2 Delivery O2 Flow Rate FiO2 07/27/19 09:00 Simple Mask 8.0 07/27/19 08:00 60 07/27/19 08:00 97.8 60 20 136/71 (92) 99 07/27/19 08:00 8.0 60 07/27/19 04:00 56 07/27/19 04:00 8.0 60 07/27/19 04:00 97.8 64 20 120/72 (88) 97 07/27/19 00:00 68 07/27/19 00:00 98.8 68 20 121/65 (83) 96 07/27/19 00:00 8.0 60 07/26/19 21:00 8.0 60 07/26/19 20:00 Simple Mask 8.0 07/26/19 20:00 65 07/26/19 20:00 98.7 64 20 122/67 (85) 97 07/26/19 16:00 8.0 60 07/26/19 16:00 68 07/26/19 16:00 97.7 65 20 128/66 (86) 94 07/26/19 16:00 Simple Mask 8.0 07/26/19 12:00 97.9 67 20 129/73 (91) 96 07/26/19 12:00 8.0 60 07/26/19 12:00 68 07/26/19 12:00 Simple Mask 8.0 Height (Feet): 5 Height (Inches): 7.00 Weight (Pounds): 180 Laboratory Tests Test 07/27/19 06:00 White Blood Count 5.7 K/UL (4.8-10.8) Red Blood Count 5.03 M/UL (4.70-6.10) Hemoglobin 14.3 G/DL (14.2-18.0) Hematocrit 42.1 % (42.0-52.0) Mean Corpuscular Volume 84 FL (80-99) Mean Corpuscular Hemoglobin 28.4 PG (27.0-31.0) Mean Corpuscular Hemoglobin Concent 34.0 G/DL (32.0-36.0) Red Cell Distribution Width 11.4 % (11.6-14.8) L Platelet Count 364 K/UL (150-450) Mean Platelet Volume 7.1 FL (6.5-10.1) Neutrophils (%) (Auto) 55.5 % (45.0-75.0) Lymphocytes (%) (Auto) 31.4 % (20.0-45.0) Monocytes (%) (Auto) 9.5 % (1.0-10.0) Eosinophils (%) (Auto) 2.3 % (0.0-3.0) Basophils (%) (Auto) 1.3 % (0.0-2.0) Sodium Level 141 MMOL/L (136-145) Potassium Level 4.1 MMOL/L (3.5-5.1) Chloride Level 105 MMOL/L (98-107) Carbon Dioxide Level 32 MMOL/L (21-32) Anion Gap 5 mmol/L (5-15) Blood Urea Nitrogen 14 mg/dL (7-18) Creatinine 0.9 MG/DL (0.55-1.30) Estimat Glomerular Filtration Rate > 60 mL/min (>60) Glucose Level 86 MG/DL (74-106) Calcium Level 8.5 MG/DL (8.5-10.1) Total Bilirubin 0.3 MG/DL (0.2-1.0) Direct Bilirubin 0.1 MG/DL (0.0-0.3) Aspartate Amino Transf (AST/SGOT) 85 U/L (15-37) H Alanine Aminotransferase (ALT/SGPT) 154 U/L (12-78) H Alkaline Phosphatase 73 U/L (46-116) Total Protein 7.2 G/DL (6.4-8.2) Albumin 2.6 G/DL (3.4-5.0) L Globulin 4.6 g/dL Albumin/Globulin Ratio 0.6 (1.0-2.7) L Current Medications Medications (Trade) Dose Ordered Sig/Devan Route PRN Reason Start Time Stop Time Status Last Admin Dose Admin Acetaminophen (Tylenol) 500 mg Q4H PRN ORAL Mild Pain (Pain Scale 1-3) 07/25/19 14:45 08/17/19 10:44 Enoxaparin Sodium (Lovenox) 40 mg DAILY SUBQ 07/26/19 09:00 10/16/19 08:59 07/27/19 08:14 Ondansetron HCl (Zofran) 4 mg Q6H PRN IVP Nausea & Vomiting 07/25/19 13:11 08/17/19 13:10 Remdesivir 100 mg/ Sodium Chloride 250 ml @ 250 mls/hr Q24H IV 07/26/19 13:00 07/28/19 13:59 07/26/19 13:13 Cristine Kilgore MD Jul 27, 2019 10:11
[2019-07-27] MEDS ORDERED: Remdesivir 100mg 100 MG in NS 230 ML IV SCH (10:30)
[2019-07-27 12:00] VITALS: BP 127/73
[2019-07-27] MEDS: Remdesivir 100mg 100 MG in NS 230 ML IV SCH (12:42)
[2019-07-27 16:00] VITALS: BP 136/76
[2019-07-27 20:00] VITALS: BP 135/75
[2019-07-28] VITALS: BP 130/72
[2019-07-28 04:00] VITALS: BP 133/70
--- NOTE | 2019-07-28 07:23 | General Progress Note ---
Assessment/Plan Problem List: (1) Pneumonia ICD Codes: J18.9 - Pneumonia, unspecified organism SNOMED: [id number] Qualifiers: Qualified Codes: J18.9 - Pneumonia, unspecified organism (2) Suspected COVID-19 virus infection ICD Codes: Z20.828 - Contact with and (suspected) exposure to other viral communicable diseases SNOMED: 533292048 Status: stable Assessment/Plan: o2 repeat lfts dc metoprolol- bradycardia emdesivir per ID dvt prophylaxis lasix x 1 Subjective ROS Limited/Unobtainable: No Constitutional: Reports: malaise, weakness HEENT: Reports: no symptoms Cardiovascular: Reports: no symptoms Respiratory: Reports: shortness of breath Gastrointestinal/Abdominal: Reports: no symptoms Genitourinary: Reports: no symptoms Neurologic/Psychiatric: Reports: no symptoms Endocrine: Reports: no symptoms Hematologic/Lymphatic: Reports: no symptoms Allergies: Coded Allergies: No Known Allergies (Unverified , 07/18/19) All Systems: reviewed and negative except above Subjective on venti mask. decreased o2 requirements. on remdesivir. cxr with worsening infiltrates/chf Objective Last 24 Hour Vital Signs Date Time Temp Pulse Resp B/P (MAP) Pulse Ox O2 Delivery O2 Flow Rate FiO2 07/28/19 04:00 8.0 60 07/28/19 04:00 97.5 61 20 133/70 (91) 97 07/28/19 04:00 55 07/28/19 00:00 98.0 72 20 130/72 (91) 95 07/28/19 00:00 62 07/27/19 21:00 Simple Mask 8.0 07/27/19 20:00 8.0 60 07/27/19 20:00 98.6 70 20 135/75 (95) 97 07/27/19 20:00 71 07/27/19 16:00 64 07/27/19 16:00 97.6 94 20 136/76 (96) 98 07/27/19 16:00 8.0 60 07/27/19 12:00 97.5 72 20 127/73 (91) 96 07/27/19 12:00 72 07/27/19 12:00 8.0 60 07/27/19 09:00 Simple Mask 8.0 07/27/19 08:00 60 07/27/19 08:00 97.8 60 20 136/71 (92) 99 07/27/19 08:00 8.0 60 Intake and Output 07/27/19 07/28/19 18:59 06:59 Intake Total 740 ml Output Total 1900 ml Balance -1160 ml Intake Oral 740 ml Output Urine Total 1900 ml # Bowel Movements 1 Laboratory Tests 07/28/19 04:00: Sodium Level [Pending], Potassium Level [Pending], Chloride Level [Pending], Carbon Dioxide Level [Pending], Blood Urea Nitrogen [Pending], Creatinine [ Pending], Estimat Glomerular Filtration Rate [Pending], Glucose Level [Pending] , Calcium Level [Pending], Total Bilirubin [Pending], Aspartate Amino Transf ( AST/SGOT) [Pending], Alanine Aminotransferase (ALT/SGPT) [Pending], Alkaline Phosphatase [Pending], Pro-B-Type Natriuretic Peptide [Pending], Total Protein [ Pending], Albumin [Pending], Globulin [Pending] Height (Feet): 5 Height (Inches): 7.00 Weight (Pounds): 180 Objective General Appearance: WD/WN Neck: supple Cardiovascular: regular rhythm Respiratory/Chest: lungs clear Abdomen: soft Edema: no edema noted Arm (L), no edema noted Arm (R), no edema noted Leg (L), no edema noted Leg (R), no edema noted Pedal (L), no edema noted Pedal (R), no edema noted Generalized Clark Wan MD Jul 28, 2019 07:23
[2019-07-28 07:46] LABS: ALANINE AMINOTRANSFERASE 149 U/L (12-78); ALBUMIN 2.9 G/DL (3.4-5.0); ALBUMIN/GLOBULIN RATIO 0.6 (1.0-2.7); ALKALINE PHOSPHATASE 81 U/L (46-116); ANION GAP 4 mmol/L (5-15); ASPARTATE AMINO TRANSFERASE 81 U/L (15-37); BILIRUBIN,TOTAL 0.3 MG/DL (0.2-1.0); BLOOD UREA NITROGEN 19 mg/dL (7-18); CALCIUM 8.9 MG/DL (8.5-10.1); CARBON DIOXIDE 33 MMOL/L (21-32); CHLORIDE 106 MMOL/L (98-107); CREATININE 1.1 MG/DL (0.55-1.30); POTASSIUM 4.3 MMOL/L (3.5-5.1); SODIUM 143 MMOL/L (136-145)
[2019-07-28 08:00] VITALS: BP 126/60
[2019-07-28] MEDS: Enoxaparin 40mg Inj SUBQ SCH (08:45)
--- NOTE | 2019-07-28 10:19 | Infectious Diseases Prog Note ---
Assessment/Plan Assessment/Plan antibiotics : remdesivir 5.29.20 - A 1. COVID 19 pneumonia on 8 liters O2, saturation 98 percent s/p hydroxychloroquine 2. pleural effusion 3. respiratory failure resolved P 1. continue remdesivir EUA day 2. will follow up cultures Subjective Constitutional: Denies: fever, chills Respiratory: Reports: shortness of breath - decreased; Denies: dry cough Gastrointestinal/Abdominal: Denies: nausea, vomiting, diarrhea Musculoskeletal: Denies: pain Allergies: Coded Allergies: No Known Allergies (Unverified , 07/18/19) Objective Vital Signs Last 24 Hour Vital Signs Date Time Temp Pulse Resp B/P (MAP) Pulse Ox O2 Delivery O2 Flow Rate FiO2 07/28/19 09:00 Simple Mask 8.0 07/28/19 08:00 8.0 60 07/28/19 08:00 67 07/28/19 08:00 97.8 67 18 126/60 (82) 98 07/28/19 04:00 8.0 60 07/28/19 04:00 97.5 61 20 133/70 (91) 97 07/28/19 04:00 55 07/28/19 00:00 98.0 72 20 130/72 (91) 95 07/28/19 00:00 62 07/27/19 21:00 Simple Mask 8.0 07/27/19 20:00 8.0 60 07/27/19 20:00 98.6 70 20 135/75 (95) 97 07/27/19 20:00 71 07/27/19 16:00 64 07/27/19 16:00 97.6 94 20 136/76 (96) 98 07/27/19 16:00 8.0 60 07/27/19 12:00 97.5 72 20 127/73 (91) 96 07/27/19 12:00 72 07/27/19 12:00 8.0 60 Height (Feet): 5 Height (Inches): 7.00 Weight (Pounds): 180 Laboratory Tests Test 07/28/19 04:00 Sodium Level 143 MMOL/L (136-145) Potassium Level 4.3 MMOL/L (3.5-5.1) Chloride Level 106 MMOL/L (98-107) Carbon Dioxide Level 33 MMOL/L (21-32) H Anion Gap 4 mmol/L (5-15) L Blood Urea Nitrogen 19 mg/dL (7-18) H Creatinine 1.1 MG/DL (0.55-1.30) Estimat Glomerular Filtration Rate > 60 mL/min (>60) Glucose Level 95 MG/DL (74-106) Calcium Level 8.9 MG/DL (8.5-10.1) Total Bilirubin 0.3 MG/DL (0.2-1.0) Aspartate Amino Transf (AST/SGOT) 81 U/L (15-37) H Alanine Aminotransferase (ALT/SGPT) 149 U/L (12-78) H Alkaline Phosphatase 81 U/L (46-116) Pro-B-Type Natriuretic Peptide 20 pg/mL (0-125) Total Protein 7.6 G/DL (6.4-8.2) Albumin 2.9 G/DL (3.4-5.0) L Globulin 4.7 g/dL Albumin/Globulin Ratio 0.6 (1.0-2.7) L Current Medications Medications (Trade) Dose Ordered Sig/Devan Route PRN Reason Start Time Stop Time Status Last Admin Dose Admin Acetaminophen (Tylenol) 500 mg Q4H PRN ORAL Mild Pain (Pain Scale 1-3) 07/25/19 14:45 08/17/19 10:44 Enoxaparin Sodium (Lovenox) 40 mg DAILY SUBQ 07/26/19 09:00 10/16/19 08:59 07/28/19 08:45 Ondansetron HCl (Zofran) 4 mg Q6H PRN IVP Nausea & Vomiting 07/25/19 13:11 08/17/19 13:10 Remdesivir 100 mg/ Sodium Chloride 250 ml @ 250 mls/hr Q24H IV 07/27/19 13:00 08/01/19 23:59 07/27/19 12:42 Cristine Kilgore MD Jul 28, 2019 10:19
[2019-07-28 12:00] VITALS: BP 127/81
[2019-07-28] MEDS: Remdesivir 100mg 100 MG in NS 230 ML IV SCH (13:03)
[2019-07-28 16:00] VITALS: BP 128/67
[2019-07-28 20:00] VITALS: BP 120/67
[2019-07-29] VITALS: BP 122/64
[2019-07-29 04:00] VITALS: BP 124/62
[2019-07-29 06:04] LABS: ALANINE AMINOTRANSFERASE 134 U/L (12-78); ALBUMIN 2.8 G/DL (3.4-5.0); ALBUMIN/GLOBULIN RATIO 0.6 (1.0-2.7); ALKALINE PHOSPHATASE 78 U/L (46-116); ANION GAP 5 mmol/L (5-15); ASPARTATE AMINO TRANSFERASE 73 U/L (15-37); BILIRUBIN,TOTAL 0.3 MG/DL (0.2-1.0); BLOOD UREA NITROGEN 20 mg/dL (7-18); CALCIUM 8.7 MG/DL (8.5-10.1); CARBON DIOXIDE 32 MMOL/L (21-32); CHLORIDE 105 MMOL/L (98-107); POTASSIUM 4.2 MMOL/L (3.5-5.1); SODIUM 142 MMOL/L (136-145)
[2019-07-29] MEDS ORDERED: Acetaminophen 500mg (ES) tab ORAL PRN (06:45)
[2019-07-29 08:00] VITALS: BP 110/57
[2019-07-29] MEDS: Enoxaparin 40mg Inj SUBQ SCH (08:32)
[2019-07-29 12:00] VITALS: BP 128/55
--- NOTE | 2019-07-29 12:47 | General Progress Note ---
Assessment/Plan Problem List: (1) Pneumonia ICD Codes: J18.9 - Pneumonia, unspecified organism SNOMED: 633051692 Qualifiers: Qualified Codes: J18.9 - Pneumonia, unspecified organism (2) Suspected COVID-19 virus infection ICD Codes: Z20.828 - Contact with and (suspected) exposure to other viral communicable diseases SNOMED: 146838255 Status: stable Assessment/Plan: o2 repeat lfts dc metoprolol- bradycardia emdesivir per ID dvt prophylaxis lasix x 1 Subjective ROS Limited/Unobtainable: No Constitutional: Reports: fever, malaise HEENT: Reports: no symptoms Cardiovascular: Reports: no symptoms Respiratory: Reports: shortness of breath Gastrointestinal/Abdominal: Reports: no symptoms Genitourinary: Reports: no symptoms Neurologic/Psychiatric: Reports: no symptoms Endocrine: Reports: no symptoms Hematologic/Lymphatic: Reports: no symptoms Allergies: Coded Allergies: No Known Allergies (Unverified , 07/18/19) All Systems: reviewed and negative except above Subjective on venti mask. decreased o2 requirements. on remdesivir. Objective Last 24 Hour Vital Signs Date Time Temp Pulse Resp B/P (MAP) Pulse Ox O2 Delivery O2 Flow Rate FiO2 07/29/19 09:00 Simple Mask 8.0 07/29/19 08:00 97.5 65 18 110/57 (74) 99 07/29/19 04:00 8.0 60 07/29/19 04:00 98.0 60 20 124/62 (82) 98 07/29/19 04:00 54 07/29/19 00:00 60 07/29/19 00:00 8.0 60 07/29/19 00:00 98.0 64 20 122/64 (83) 98 07/28/19 21:00 Simple Mask 8.0 07/28/19 20:00 97.5 61 20 120/67 (84) 98 07/28/19 20:00 97 Venturi Mask 14.0 55 07/28/19 20:00 66 07/28/19 20:00 8.0 60 07/28/19 16:00 8.0 60 07/28/19 16:00 69 07/28/19 16:00 97.5 69 19 128/67 (87) 98 Intake and Output 07/28/19 07/29/19 19:00 07:00 Intake Total 140 ml Output Total 1400 ml Balance -1260 ml Intake Oral 140 ml Output Urine Total 1400 ml # Voids 3 Laboratory Tests 07/29/19 04:40: Sodium Level 142, Potassium Level 4.2, Chloride Level 105, Carbon Dioxide Level 32, Anion Gap 5, Blood Urea Nitrogen 20H, Creatinine 1.0, Estimat Glomerular Filtration Rate > 60, Glucose Level 98, Calcium Level 8.7, Magnesium Level 2.3, Total Bilirubin 0.3, Aspartate Amino Transf (AST/SGOT) 73H, Alanine Aminotransferase (ALT/SGPT) 134H, Alkaline Phosphatase 78, Total Protein 7.4, Albumin 2.8L, Globulin 4.6, Albumin/Globulin Ratio 0.6L Height (Feet): 5 Height (Inches): 7.00 Weight (Pounds): 178 Objective General Appearance: WD/WN Neck: supple Cardiovascular: regular rhythm Respiratory/Chest: lungs clear Abdomen: soft Edema: no edema noted Arm (L), no edema noted Arm (R), no edema noted Leg (L), no edema noted Leg (R), no edema noted Pedal (L), no edema noted Pedal (R), no edema noted Generalized Clark Wan MD Jul 29, 2019 12:47
[2019-07-29] MEDS: Remdesivir 100mg 100 MG in NS 230 ML IV SCH (13:29)
--- NOTE | 2019-07-29 13:51 | Infectious Diseases Prog Note ---
Assessment/Plan Assessment/Plan A 1. COVID19 pneumonia 2. pleural effusion 3. respiratory failure 4. Elevated transaminase P 1. continue Remdesivir Subjective ROS Limited/Unobtainable: No Respiratory: Reports: no symptoms Cardiovascular: Reports: no symptoms Gastrointestinal/Abdominal: Reports: no symptoms Genitourinary: Reports: no symptoms Allergies: Coded Allergies: No Known Allergies (Unverified , 07/18/19) Objective Vital Signs Last 24 Hour Vital Signs Date Time Temp Pulse Resp B/P (MAP) Pulse Ox O2 Delivery O2 Flow Rate FiO2 07/29/19 12:00 99.5 68 18 128/55 (79) 98 07/29/19 09:00 Simple Mask 8.0 07/29/19 08:00 97.5 65 18 110/57 (74) 99 07/29/19 04:00 8.0 60 07/29/19 04:00 98.0 60 20 124/62 (82) 98 07/29/19 04:00 54 07/29/19 00:00 60 07/29/19 00:00 8.0 60 07/29/19 00:00 98.0 64 20 122/64 (83) 98 07/28/19 21:00 Simple Mask 8.0 07/28/19 20:00 97.5 61 20 120/67 (84) 98 07/28/19 20:00 97 Venturi Mask 14.0 55 07/28/19 20:00 66 07/28/19 20:00 8.0 60 07/28/19 16:00 8.0 60 07/28/19 16:00 69 07/28/19 16:00 97.5 69 19 128/67 (87) 98 Height (Feet): 5 Height (Inches): 7.00 Weight (Pounds): 178 General Appearance: no acute distress HEENT: mucous membranes moist Respiratory/Chest: other - oxygen by mask Cardiovascular: normal rate Abdomen: soft, non tender Extremities: no edema Neurologic/Psychiatric: alert, oriented x 3, responsive Laboratory Tests Test 07/29/19 04:40 Sodium Level 142 MMOL/L (136-145) Potassium Level 4.2 MMOL/L (3.5-5.1) Chloride Level 105 MMOL/L (98-107) Carbon Dioxide Level 32 MMOL/L (21-32) Anion Gap 5 mmol/L (5-15) Blood Urea Nitrogen 20 mg/dL (7-18) H Creatinine 1.0 MG/DL (0.55-1.30) Estimat Glomerular Filtration Rate > 60 mL/min (>60) Glucose Level 98 MG/DL (74-106) Calcium Level 8.7 MG/DL (8.5-10.1) Magnesium Level 2.3 MG/DL (1.8-2.4) Total Bilirubin 0.3 MG/DL (0.2-1.0) Aspartate Amino Transf (AST/SGOT) 73 U/L (15-37) H Alanine Aminotransferase (ALT/SGPT) 134 U/L (12-78) H Alkaline Phosphatase 78 U/L (46-116) Total Protein 7.4 G/DL (6.4-8.2) Albumin 2.8 G/DL (3.4-5.0) L Globulin 4.6 g/dL Albumin/Globulin Ratio 0.6 (1.0-2.7) L Current Medications Medications (Trade) Dose Ordered Sig/Devan Route PRN Reason Start Time Stop Time Status Last Admin Dose Admin Acetaminophen (Tylenol) 500 mg Q4H PRN ORAL Mild Pain (Pain Scale 1-3) 07/29/19 06:45 08/17/19 10:44 Enoxaparin Sodium (Lovenox) 40 mg DAILY SUBQ 07/29/19 09:00 10/16/19 08:59 07/29/19 08:32 Ondansetron HCl (Zofran) 4 mg Q6H PRN IVP Nausea & Vomiting 07/29/19 07:15 08/17/19 13:10 Remdesivir 100 mg/ Sodium Chloride 250 ml @ 250 mls/hr Q24H IV 07/29/19 13:00 08/01/19 23:59 07/29/19 13:29 Ricci Greco MD Jul 29, 2019 13:51
[2019-07-29 16:00] VITALS: BP 118/63
[2019-07-29 20:00] VITALS: BP 118/60
[2019-07-30] VITALS: BP 128/62
[2019-07-30 04:00] VITALS: BP 132/66
[2019-07-30 08:00] VITALS: BP 120/60
[2019-07-30] MEDS: Enoxaparin 40mg Inj SUBQ SCH (09:02)
--- NOTE | 2019-07-30 10:02 | General Progress Note ---
Assessment/Plan Problem List: (1) Pneumonia ICD Codes: J18.9 - Pneumonia, unspecified organism SNOMED: 927603968 Qualifiers: Qualified Codes: J18.9 - Pneumonia, unspecified organism (2) Suspected COVID-19 virus infection ICD Codes: Z20.828 - Contact with and (suspected) exposure to other viral communicable diseases SNOMED: 810492034 Status: stable Assessment/Plan: o2 repeat lfts dc metoprolol- bradycardia emdesivir per ID dvt prophylaxis lasix x 1 Subjective ROS Limited/Unobtainable: No Constitutional: Reports: malaise, weakness HEENT: Reports: no symptoms Cardiovascular: Reports: no symptoms Respiratory: Reports: no symptoms Gastrointestinal/Abdominal: Reports: no symptoms Genitourinary: Reports: no symptoms Neurologic/Psychiatric: Reports: no symptoms Endocrine: Reports: no symptoms Hematologic/Lymphatic: Reports: no symptoms Allergies: Coded Allergies: No Known Allergies (Unverified , 07/18/19) All Systems: reviewed and negative except above Subjective on simple mask. decreased o2 requirements. on remdesivir. Objective Last 24 Hour Vital Signs Date Time Temp Pulse Resp B/P (MAP) Pulse Ox O2 Delivery O2 Flow Rate FiO2 07/30/19 04:00 97.9 56 18 132/66 (88) 96 07/30/19 00:00 98.8 68 20 128/62 (84) 95 07/29/19 21:00 Simple Mask 6.0 07/29/19 20:00 98.3 65 20 118/60 (79) 96 07/29/19 16:00 97.7 65 18 118/63 (81) 97 07/29/19 12:00 99.5 68 18 128/55 (79) 98 Intake and Output 07/29/19 07/30/19 19:00 07:00 Intake Total 866 ml Output Total 200 ml 300 ml Balance 666 ml -300 ml Intake Oral 616 ml IV Total 250 ml Output Urine Total 200 ml 300 ml # Voids 2 # Bowel Movements 1 Height (Feet): 5 Height (Inches): 7.00 Weight (Pounds): 179 Objective General Appearance: WD/WN Neck: supple Cardiovascular: regular rhythm Respiratory/Chest: lungs clear Abdomen: soft Edema: no edema noted Arm (L), no edema noted Arm (R), no edema noted Leg (L), no edema noted Leg (R), no edema noted Pedal (L), no edema noted Pedal (R), no edema noted Generalized Clark Wan MD Jul 30, 2019 10:02
--- NOTE | 2019-07-30 11:13 | Infectious Diseases Prog Note ---
Assessment/Plan Assessment/Plan antibiotics : remdesivir 5.29.20 - A 1. COVID 19 pneumonia on 6 liters O2, saturation 98 percent s/p hydroxychloroquine 2. pleural effusion 3. respiratory failure resolved P 1. continue remdesivir EUA day 2. will follow up cultures Subjective Constitutional: Denies: fever, chills Respiratory: Reports: shortness of breath; Denies: dry cough Gastrointestinal/Abdominal: Denies: nausea, vomiting, diarrhea Musculoskeletal: Denies: pain Allergies: Coded Allergies: No Known Allergies (Unverified , 07/18/19) Objective Vital Signs Last 24 Hour Vital Signs Date Time Temp Pulse Resp B/P (MAP) Pulse Ox O2 Delivery O2 Flow Rate FiO2 07/30/19 08:00 97.3 65 20 120/60 (80) 99 07/30/19 04:00 97.9 56 18 132/66 (88) 96 07/30/19 00:00 98.8 68 20 128/62 (84) 95 07/29/19 21:00 Simple Mask 6.0 07/29/19 20:00 98.3 65 20 118/60 (79) 96 07/29/19 16:00 97.7 65 18 118/63 (81) 97 07/29/19 12:00 99.5 68 18 128/55 (79) 98 Height (Feet): 5 Height (Inches): 7.00 Weight (Pounds): 179 Current Medications Medications (Trade) Dose Ordered Sig/Devan Route PRN Reason Start Time Stop Time Status Last Admin Dose Admin Acetaminophen (Tylenol) 500 mg Q4H PRN ORAL Mild Pain (Pain Scale 1-3) 07/29/19 06:45 08/17/19 10:44 Enoxaparin Sodium (Lovenox) 40 mg DAILY SUBQ 07/29/19 09:00 10/16/19 08:59 07/30/19 09:02 Ondansetron HCl (Zofran) 4 mg Q6H PRN IVP Nausea & Vomiting 07/29/19 07:15 08/17/19 13:10 Remdesivir 100 mg/ Sodium Chloride 250 ml @ 250 mls/hr Q24H IV 07/29/19 13:00 08/01/19 23:59 07/29/19 13:29 Cristine Kilgore MD Jul 30, 2019 11:13
[2019-07-30 12:00] VITALS: BP 132/64
[2019-07-30] MEDS: Remdesivir 100mg 100 MG in NS 230 ML IV SCH (13:08)
[2019-07-30 16:00] VITALS: BP 125/66
[2019-07-30 20:00] VITALS: BP 121/68
[2019-07-31] VITALS (7 sets, daily range): BP systolic 123–151; BP diastolic 59–74
[2019-07-31 05:22] LABS: ALANINE AMINOTRANSFERASE 110 U/L (12-78); ALBUMIN 2.7 G/DL (3.4-5.0); ALBUMIN/GLOBULIN RATIO 0.7 (1.0-2.7); ALKALINE PHOSPHATASE 79 U/L (46-116); ANION GAP 6 mmol/L (5-15); ASPARTATE AMINO TRANSFERASE 47 U/L (15-37); BILIRUBIN,DIRECT < 0.1 MG/DL (0.0-0.3); BILIRUBIN,TOTAL 0.3 MG/DL (0.2-1.0); BLOOD UREA NITROGEN 14 mg/dL (7-18); CALCIUM 8.5 MG/DL (8.5-10.1); CARBON DIOXIDE 30 MMOL/L (21-32); CHLORIDE 106 MMOL/L (98-107); CREATININE 0.9 MG/DL (0.55-1.30); POTASSIUM 4.3 MMOL/L (3.5-5.1); SODIUM 141 MMOL/L (136-145)
[2019-07-31] MEDS: Enoxaparin 40mg Inj SUBQ SCH (08:39)
--- NOTE | 2019-07-31 08:50 | General Progress Note ---
Assessment/Plan Problem List: (1) Pneumonia ICD Codes: J18.9 - Pneumonia, unspecified organism SNOMED: [id number] Qualifiers: Qualified Codes: J18.9 - Pneumonia, unspecified organism (2) Suspected COVID-19 virus infection ICD Codes: Z20.828 - Contact with and (suspected) exposure to other viral communicable diseases SNOMED: 392357147 Status: stable Assessment/Plan: o2 wean remdesevir per ID Subjective ROS Limited/Unobtainable: No Constitutional: Reports: no symptoms HEENT: Reports: no symptoms Cardiovascular: Reports: no symptoms Respiratory: Reports: no symptoms Gastrointestinal/Abdominal: Reports: no symptoms Genitourinary: Reports: no symptoms Neurologic/Psychiatric: Reports: no symptoms Endocrine: Reports: no symptoms Hematologic/Lymphatic: Reports: no symptoms Allergies: Coded Allergies: No Known Allergies (Unverified , 07/18/19) All Systems: reviewed and negative except above Subjective improving. on 3L now. Objective Last 24 Hour Vital Signs Date Time Temp Pulse Resp B/P (MAP) Pulse Ox O2 Delivery O2 Flow Rate FiO2 07/31/19 08:00 97.5 67 20 123/59 (80) 98 07/31/19 06:00 97.0 60 18 151/71 (97) 97 07/31/19 04:00 97.7 64 18 151/72 (98) 97 07/31/19 00:00 99.0 61 19 139/74 (95) 97 07/30/19 21:00 Simple Mask 3.0 07/30/19 20:00 99.0 65 21 121/68 (85) 98 07/30/19 19:16 98 Venturi Mask 14.0 55 07/30/19 16:00 99.1 64 22 125/66 (85) 98 07/30/19 12:00 97.3 64 20 132/64 (86) 97 07/30/19 09:00 Simple Mask 5.0 Intake and Output 07/30/19 07/31/19 19:00 07:00 Intake Total 1750 ml Output Total 600 ml Balance 1150 ml Intake Oral 1500 ml IV Total 250 ml Output Urine Total 600 ml # Bowel Movements 1 Laboratory Tests 07/31/19 04:50: Sodium Level 141, Potassium Level 4.3, Chloride Level 106, Carbon Dioxide Level 30, Anion Gap 6, Blood Urea Nitrogen 14, Creatinine 0.9, Estimat Glomerular Filtration Rate > 60, Glucose Level 84, Calcium Level 8.5, Total Bilirubin 0.3, Direct Bilirubin < 0.1, Aspartate Amino Transf (AST/SGOT) 47H, Alanine Aminotransferase (ALT/SGPT) 110H, Alkaline Phosphatase 79, Total Protein 6.8, Albumin 2.7L, Globulin 4.1, Albumin/Globulin Ratio 0.7L Height (Feet): 5 Height (Inches): 7.00 Weight (Pounds): 179 Objective General Appearance: WD/WN Neck: supple Cardiovascular: regular rhythm Respiratory/Chest: lungs clear Abdomen: soft Edema: no edema noted Arm (L), no edema noted Arm (R), no edema noted Leg (L), no edema noted Leg (R), no edema noted Pedal (L), no edema noted Pedal (R), no edema noted Generalized Clark Wan MD Jul 31, 2019 08:49
--- NOTE | 2019-07-31 10:44 | Infectious Diseases Prog Note ---
Assessment/Plan Assessment/Plan antibiotics : remdesivir 5.29.20 - A 1. COVID 19 pneumonia on 3 liters O2, saturation 97 percent s/p hydroxychloroquine 2. pleural effusion 3. respiratory failure resolved P 1. continue remdesivir EUA day 2. will follow up cultures Subjective Constitutional: Denies: fever, chills Respiratory: Reports: shortness of breath; Denies: dry cough Gastrointestinal/Abdominal: Denies: nausea, vomiting, diarrhea Musculoskeletal: Denies: pain Allergies: Coded Allergies: No Known Allergies (Unverified , 07/18/19) Objective Vital Signs Last 24 Hour Vital Signs Date Time Temp Pulse Resp B/P (MAP) Pulse Ox O2 Delivery O2 Flow Rate FiO2 07/31/19 09:00 Simple Mask 3.0 07/31/19 08:00 97.5 67 20 123/59 (80) 98 07/31/19 06:00 97.0 60 18 151/71 (97) 97 07/31/19 04:00 97.7 64 18 151/72 (98) 97 07/31/19 00:00 99.0 61 19 139/74 (95) 97 07/30/19 21:00 Simple Mask 3.0 07/30/19 20:00 99.0 65 21 121/68 (85) 98 07/30/19 19:16 98 Venturi Mask 14.0 55 07/30/19 16:00 99.1 64 22 125/66 (85) 98 07/30/19 12:00 97.3 64 20 132/64 (86) 97 Height (Feet): 5 Height (Inches): 7.00 Weight (Pounds): 179 Laboratory Tests Test 07/31/19 04:50 Sodium Level 141 MMOL/L (136-145) Potassium Level 4.3 MMOL/L (3.5-5.1) Chloride Level 106 MMOL/L (98-107) Carbon Dioxide Level 30 MMOL/L (21-32) Anion Gap 6 mmol/L (5-15) Blood Urea Nitrogen 14 mg/dL (7-18) Creatinine 0.9 MG/DL (0.55-1.30) Estimat Glomerular Filtration Rate > 60 mL/min (>60) Glucose Level 84 MG/DL (74-106) Calcium Level 8.5 MG/DL (8.5-10.1) Total Bilirubin 0.3 MG/DL (0.2-1.0) Direct Bilirubin < 0.1 MG/DL (0.0-0.3) Aspartate Amino Transf (AST/SGOT) 47 U/L (15-37) H Alanine Aminotransferase (ALT/SGPT) 110 U/L (12-78) H Alkaline Phosphatase 79 U/L (46-116) Total Protein 6.8 G/DL (6.4-8.2) Albumin 2.7 G/DL (3.4-5.0) L Globulin 4.1 g/dL Albumin/Globulin Ratio 0.7 (1.0-2.7) L Current Medications Medications (Trade) Dose Ordered Sig/Devan Route PRN Reason Start Time Stop Time Status Last Admin Dose Admin Acetaminophen (Tylenol) 500 mg Q4H PRN ORAL Mild Pain (Pain Scale 1-3) 07/29/19 06:45 08/17/19 10:44 Enoxaparin Sodium (Lovenox) 40 mg DAILY SUBQ 07/29/19 09:00 10/16/19 08:59 07/31/19 08:39 Ondansetron HCl (Zofran) 4 mg Q6H PRN IVP Nausea & Vomiting 07/29/19 07:15 08/17/19 13:10 Remdesivir 100 mg/ Sodium Chloride 250 ml @ 250 mls/hr Q24H IV 07/29/19 13:00 08/01/19 23:59 07/30/19 13:08 Cristine Kilgore MD Jul 31, 2019 10:44
[2019-07-31 11:06] LABS: BASOPHILS % (AUTO) 1.4 % (0.0-2.0); HEMATOCRIT 40.9 % (42.0-52.0); HEMOGLOBIN 13.8 G/DL (14.2-18.0); LYMPHOCYTES % (AUTO) 31.2 % (20.0-45.0); MEAN CORPUSCULAR VOLUME 85 FL (80-99); MONOCYTES % (AUTO) 13.3 % (1.0-10.0); NEUTROPHILS % (AUTO) 52.1 % (45.0-75.0); PLATELET COUNT 237 K/UL (150-450); RED BLOOD COUNT 4.82 M/UL (4.70-6.10); RED CELL DISTRIBUTION WIDTH 11.7 % (11.6-14.8)
[2019-07-31] MEDS: Remdesivir 100mg 100 MG in NS 230 ML IV SCH (13:17)
[2019-08-01] VITALS: BP 124/59
[2019-08-01 04:00] VITALS: BP 122/63
[2019-08-01 08:00] VITALS: BP 123/67
[2019-08-01] MEDS: Enoxaparin 40mg Inj SUBQ SCH (08:10)
--- NOTE | 2019-08-01 08:16 | General Progress Note ---
Assessment/Plan Problem List: (1) Pneumonia ICD Codes: J18.9 - Pneumonia, unspecified organism SNOMED: 916402678 Qualifiers: Qualified Codes: J18.9 - Pneumonia, unspecified organism (2) Suspected COVID-19 virus infection ICD Codes: Z20.828 - Contact with and (suspected) exposure to other viral communicable diseases SNOMED: 919229546 Status: stable Assessment/Plan: o2 wean remdesevir per ID Subjective ROS Limited/Unobtainable: No Constitutional: Reports: no symptoms HEENT: Reports: no symptoms Cardiovascular: Reports: no symptoms Respiratory: Reports: shortness of breath Gastrointestinal/Abdominal: Reports: no symptoms Genitourinary: Reports: no symptoms Neurologic/Psychiatric: Reports: no symptoms Endocrine: Reports: no symptoms Hematologic/Lymphatic: Reports: no symptoms Allergies: Coded Allergies: No Known Allergies (Unverified , 07/18/19) All Systems: reviewed and negative except above Subjective improving. on 3L now. Objective Last 24 Hour Vital Signs Date Time Temp Pulse Resp B/P (MAP) Pulse Ox O2 Delivery O2 Flow Rate FiO2 08/01/19 04:00 97.5 58 18 122/63 (82) 99 08/01/19 00:00 97.2 56 18 124/59 (80) 99 07/31/19 20:20 Simple Mask 3.0 07/31/19 20:00 97.9 64 19 136/66 (89) 97 07/31/19 16:00 97.7 64 20 140/68 (92) 97 07/31/19 12:00 97.7 62 20 126/61 (82) 98 07/31/19 09:00 Simple Mask 3.0 Intake and Output 07/31/19 08/01/19 19:00 07:00 Intake Total 850 ml Output Total 400 ml Balance 450 ml Intake Oral 600 ml IV Total 250 ml Output Urine Total 400 ml # Voids 2 # Bowel Movements 2 1 Laboratory Tests 07/31/19 10:35: White Blood Count 6.0, Red Blood Count 4.82, Hemoglobin 13.8L, Hematocrit 40.9L , Mean Corpuscular Volume 85, Mean Corpuscular Hemoglobin 28.6, Mean Corpuscular Hemoglobin Concent 33.7, Red Cell Distribution Width 11.7, Platelet Count 237, Mean Platelet Volume 10.2H, Neutrophils (%) (Auto) 52.1, Lymphocytes (%) (Auto) 31.2, Monocytes (%) (Auto) 13.3H, Eosinophils (%) (Auto) 2.0, Basophils (%) (Auto) 1.4 Height (Feet): 5 Height (Inches): 7.00 Weight (Pounds): 179 Objective General Appearance: WD/WN Neck: supple Cardiovascular: regular rhythm Respiratory/Chest: lungs clear Abdomen: soft Edema: no edema noted Arm (L), no edema noted Arm (R), no edema noted Leg (L), no edema noted Leg (R), no edema noted Pedal (L), no edema noted Pedal (R), no edema noted Generalized Clark Wan MD Aug 01, 2019 08:16
[2019-08-01 12:00] VITALS: BP 143/94
[2019-08-01] MEDS: Remdesivir 100mg 100 MG in NS 230 ML IV SCH (13:25)
--- NOTE | 2019-08-01 15:04 | Infectious Diseases Prog Note ---
Assessment/Plan Assessment/Plan A 1. COVID19 pneumonia 2. pleural effusion 3. respiratory failure 4. Elevated transaminase P 1. continue Remdesivir Subjective ROS Limited/Unobtainable: Yes Respiratory: Reports: no symptoms Allergies: Coded Allergies: No Known Allergies (Unverified , 07/18/19) Objective Vital Signs Last 24 Hour Vital Signs Date Time Temp Pulse Resp B/P (MAP) Pulse Ox O2 Delivery O2 Flow Rate FiO2 08/01/19 12:00 97.5 70 18 143/94 (110) 98 08/01/19 09:00 Simple Mask 2.0 08/01/19 08:00 97.0 85 17 123/67 (85) 98 08/01/19 04:00 97.5 58 18 122/63 (82) 99 08/01/19 00:00 97.2 56 18 124/59 (80) 99 07/31/19 20:20 Simple Mask 3.0 07/31/19 20:00 97.9 64 19 136/66 (89) 97 07/31/19 16:00 97.7 64 20 140/68 (92) 97 Height (Feet): 5 Height (Inches): 7.00 Weight (Pounds): 179 General Appearance: no acute distress HEENT: mucous membranes moist Respiratory/Chest: other - oxygen by mask Cardiovascular: normal rate Abdomen: soft, non tender Extremities: no edema Neurologic/Psychiatric: alert, responsive Current Medications Medications (Trade) Dose Ordered Sig/Devan Route PRN Reason Start Time Stop Time Status Last Admin Dose Admin Acetaminophen (Tylenol) 500 mg Q4H PRN ORAL Mild Pain (Pain Scale 1-3) 07/29/19 06:45 08/17/19 10:44 Enoxaparin Sodium (Lovenox) 40 mg DAILY SUBQ 07/29/19 09:00 10/16/19 08:59 08/01/19 08:10 Ondansetron HCl (Zofran) 4 mg Q6H PRN IVP Nausea & Vomiting 07/29/19 07:15 08/17/19 13:10 Remdesivir 100 mg/ Sodium Chloride 250 ml @ 250 mls/hr Q24H IV 07/29/19 13:00 08/01/19 23:59 08/01/19 13:25 Ricci Greco MD Aug 01, 2019 15:04
[2019-08-01 16:00] VITALS: BP 138/79
[2019-08-01 20:00] VITALS: BP 123/68
--- NOTE | 2019-08-01 20:10 | CDS Physician Query ---
Clarification is required for compliance, coding accuracy, and to reflect severity of illness for this patient Dear Dr. Clark Wan M.D. Date: 08/01/2019 Clinical Documentation Statement: "59-year-old male, admitted with complaints of shortness of breath, cough, and fevers, and significant hypoxemia, likely secondary to COVID pneumonia. " [ H&P Clark Wan M.D. 07/18/19] Assessment: 1. COVID19 pneumonia 2. pleural effusion 3. respiratory failure 4. Elevated transaminase [ PROGRESS NOTE: Ricci Greco MD 08/01/19] Clinical Finding Show: Vitals (07/17): T99.7F, Pulse 94, RR 41, BP160/83 LAB (07/17) : Hemat; WBC 6.3, Neutr% 72.0 Chem: Glucose 117, C-rect Pt 22.6, Alb 2.8 Microbiology (07/17): COVID-19 Final SARS-CoV-2, DETECTED Medication: Azithromycin 500 IV (07/17), Ceftriaxone IV ( 07/17-07/22), Hydroxychloroquine 200mg PO ( 07/17-07/21) According to the clinical indications above, please indicate below the condition PHYSICIAN RESPONSE: [ ] Sepsis [ ] Sepsis due to viral infection [ ] SIRS [ ] Not applicable [ X] Other: COVID 19 PNA Present on Admission: X Yes No Clinically Undetermined Physician signature Date Please also document in your Progress Notes and/or Discharge Summary and indicate if the condition was present on admission. MTDD
[2019-08-02] VITALS: BP 127/72
[2019-08-02 04:00] VITALS: BP 121/64
[2019-08-02 08:00] VITALS: BP 134/70
[2019-08-02] MEDS: Enoxaparin 40mg Inj SUBQ SCH (08:09)
--- NOTE | 2019-08-02 09:48 | General Progress Note ---
Assessment/Plan Problem List: (1) Pneumonia ICD Codes: J18.9 - Pneumonia, unspecified organism SNOMED: [id number] Qualifiers: Qualified Codes: J18.9 - Pneumonia, unspecified organism (2) Suspected COVID-19 virus infection ICD Codes: Z20.828 - Contact with and (suspected) exposure to other viral communicable diseases SNOMED: 379946865 Status: stable Assessment/Plan: o2 wean remdesevir per ID Subjective ROS Limited/Unobtainable: No Constitutional: Reports: malaise, weakness HEENT: Reports: no symptoms Cardiovascular: Reports: no symptoms Respiratory: Reports: cough Gastrointestinal/Abdominal: Reports: no symptoms Genitourinary: Reports: no symptoms Neurologic/Psychiatric: Reports: no symptoms Endocrine: Reports: no symptoms Hematologic/Lymphatic: Reports: no symptoms Allergies: Coded Allergies: No Known Allergies (Unverified , 07/18/19) All Systems: reviewed and negative except above Subjective improving. on nasal cannula Objective Last 24 Hour Vital Signs Date Time Temp Pulse Resp B/P (MAP) Pulse Ox O2 Delivery O2 Flow Rate FiO2 08/02/19 04:00 97.4 52 17 121/64 (83) 96 08/02/19 00:00 97.8 56 18 127/72 (90) 96 08/01/19 20:50 Simple Mask 3.0 08/01/19 20:10 98 Nasal Cannula 2.0 28 08/01/19 20:00 97.6 67 18 123/68 (86) 96 08/01/19 16:00 98.0 81 17 138/79 (98) 97 08/01/19 12:00 97.5 70 18 143/94 (110) 98 Intake and Output 08/01/19 08/02/19 19:00 07:00 Intake Total 950 ml Balance 950 ml Intake Oral 700 ml IV Total 250 ml # Voids 3 # Bowel Movements 1 Height (Feet): 5 Height (Inches): 7.00 Weight (Pounds): 179 Objective General Appearance: WD/WN Neck: supple Cardiovascular: regular rhythm Respiratory/Chest: lungs clear Abdomen: soft Edema: no edema noted Arm (L), no edema noted Arm (R), no edema noted Leg (L), no edema noted Leg (R), no edema noted Pedal (L), no edema noted Pedal (R), no edema noted Generalized [place],Clark M. MD Aug 02, 2019 09:48
[2019-08-02 12:00] VITALS: BP 130/74
--- NOTE | 2019-08-02 12:04 | Infectious Diseases Prog Note ---
Assessment/Plan Assessment/Plan antibiotics : none A 1. COVID 19 pneumonia on 2 liters O2, saturation 97 percent s/p hydroxychloroquine s/p remdesivir EUA 2. pleural effusion 3. respiratory failure resolved P 1. continue off antibiotics 2. will follow up culture 3. continue isolation Subjective Constitutional: Denies: fever, chills Respiratory: Reports: shortness of breath - decreased, dry cough - mild Gastrointestinal/Abdominal: Denies: nausea, vomiting, diarrhea Musculoskeletal: Denies: pain Allergies: Coded Allergies: No Known Allergies (Unverified , 07/18/19) Objective Vital Signs Last 24 Hour Vital Signs Date Time Temp Pulse Resp B/P (MAP) Pulse Ox O2 Delivery O2 Flow Rate FiO2 08/02/19 09:00 Nasal Cannula 1.5 08/02/19 08:00 97.7 65 20 134/70 (91) 94 08/02/19 04:00 97.4 52 17 121/64 (83) 96 08/02/19 00:00 97.8 56 18 127/72 (90) 96 08/01/19 20:50 Simple Mask 3.0 08/01/19 20:10 98 Nasal Cannula 2.0 28 08/01/19 20:00 97.6 67 18 123/68 (86) 96 08/01/19 16:00 98.0 81 17 138/79 (98) 97 Height (Feet): 5 Height (Inches): 7.00 Weight (Pounds): 179 Microbiology Date/Time Source Procedure Growth Status 07/31/19 11:00 Nasopharynx Coronavirus COVID-19 PCR ([facility]) - Final Complete Current Medications Medications (Trade) Dose Ordered Sig/Devan Route PRN Reason Start Time Stop Time Status Last Admin Dose Admin Acetaminophen (Tylenol) 500 mg Q4H PRN ORAL Mild Pain (Pain Scale 1-3) 07/29/19 06:45 08/17/19 10:44 Enoxaparin Sodium (Lovenox) 40 mg DAILY SUBQ 07/29/19 09:00 10/16/19 08:59 08/02/19 08:09 Ondansetron HCl (Zofran) 4 mg Q6H PRN IVP Nausea & Vomiting 07/29/19 07:15 08/17/19 13:10 Cristine Kilgore MD Aug 02, 2019 12:04
[2019-08-02 16:00] VITALS: BP 123/79
[2019-08-02 20:00] VITALS: BP 133/71
[2019-08-03] VITALS: BP 125/71
[2019-08-03 04:00] VITALS: BP 124/72
[2019-08-03 08:00] VITALS: BP 126/76
[2019-08-03] MEDS: Enoxaparin 40mg Inj SUBQ SCH (08:32)
--- NOTE | 2019-08-03 11:09 | Infectious Diseases Prog Note ---
Assessment/Plan Assessment/Plan antibiotics : none A 1. COVID 19 pneumonia on 1.5 liters O2, saturation 95 percent s/p hydroxychloroquine s/p remdesivir EUA 2. pleural effusion 3. respiratory failure resolved 4. increased LFT improving P 1. continue off antibiotics 2. will follow up culture 3. continue isolation Subjective Constitutional: Denies: fever, chills Respiratory: Reports: dry cough - mild; Denies: shortness of breath Gastrointestinal/Abdominal: Denies: nausea, vomiting, diarrhea Musculoskeletal: Denies: pain Allergies: Coded Allergies: No Known Allergies (Unverified , 07/18/19) Objective Vital Signs Last 24 Hour Vital Signs Date Time Temp Pulse Resp B/P (MAP) Pulse Ox O2 Delivery O2 Flow Rate FiO2 08/03/19 09:00 Nasal Cannula 1.5 08/03/19 08:00 97.3 63 20 126/76 (93) 96 08/03/19 04:00 97.9 53 20 124/72 (89) 95 08/03/19 00:00 97.7 63 20 125/71 (89) 95 08/02/19 21:00 Nasal Cannula 1.5 08/02/19 20:30 97 Nasal Cannula 2.0 28 08/02/19 20:00 97.9 67 20 133/71 (91) 93 08/02/19 16:00 97.9 66 20 123/79 (94) 96 08/02/19 12:00 97.3 64 20 130/74 (92) 94 Height (Feet): 5 Height (Inches): 7.00 Weight (Pounds): 176 Current Medications Medications (Trade) Dose Ordered Sig/Devan Route PRN Reason Start Time Stop Time Status Last Admin Dose Admin Acetaminophen (Tylenol) 500 mg Q4H PRN ORAL Mild Pain (Pain Scale 1-3) 07/29/19 06:45 08/17/19 10:44 Enoxaparin Sodium (Lovenox) 40 mg DAILY SUBQ 07/29/19 09:00 10/16/19 08:59 08/03/19 08:32 Ondansetron HCl (Zofran) 4 mg Q6H PRN IVP Nausea & Vomiting 07/29/19 07:15 08/17/19 13:10 Cristine Kilgore MD Aug 03, 2019 11:09
[2019-08-03 11:57] VITALS: BP 142/72
[2019-08-03 16:00] VITALS: BP 152/79
--- NOTE | 2019-08-04 00:30 | Discharge Summary ---
DATE OF ADMISSION: 07/18/2019 DATE OF DISCHARGE: 08/03/2019 ADMITTING DIAGNOSES: 1. COVID-19 pneumonia. 2. Respiratory failure. DISCHARGE DIAGNOSES: 1. COVID-19 pneumonia. 2. Respiratory failure. HOSPITAL COURSE: Mr. Barnes was admitted with complaints of shortness of breath. He had x-ray evidence consistent with possible COVID-19 pneumonia. His PCR returned back positive. He was initially admitted to the intensive care unit because of severe hypoxemia. He was continued on non-rebreather was gradually weaned. He received hydroxychloroquine without any improvement and then received a course of Remdesivir. He tolerated it well. He had significant improvement in his hypoxemia and on the day of discharge was stable on room air. He has been discharged home to remain isolated from family members in the next 14 days. He has been instructed to return for any worsening fevers, chills. Plan of care was discussed with the patient's daughter. DISCHARGE MEDICATIONS: Please see discharge medication list for discharge medications. DIET: Regular diet. ACTIVITIES: Ad-reyes. Clark Wan M.D. DR: Chyna JOB#: [id number] CC:
== END 2019-08-03 16:00 | disposition home or self-care (01) | DRG 137 ==
LOC: EMR 00:57 → 4E 02:38 → EDBEDREQ 03:32 → ICU 05:30 → 2W 07-20 11:47 → 2E 07-25 13:07 → 4E 07-29 05:57
DX: U07.1 COVID-19 (principal); J12.89 Other viral pneumonia; J96.91 Respiratory failure, unspecified with hypoxia; Z20.828 Contact with and (suspected) exposure to other viral communicable diseases; E66.9 Obesity, unspecified; Z68.30 Body mass index [BMI] 30.0-30.9, adult
CPT/HCPCS: 36415; 71045; 80048; 80053; 82248; 82728; 82962; 83520; 83735; 83880; 85025; 85379; 85651; 86140; 87081; 87635; 93005; 96361; 96365; 96367; 99285; J7030; J8499